=== PATIENT | female | born 1955 | race African-American/Black ===

== ENCOUNTER 2024-10-02 14:52 | Emergency (ER) | payer MEDICAID ==
[~2024-10-02] VITALS: Ht 167.6 cm; Wt 91.0 kg
--- NOTE | 2024-10-02 15:50 | ED.PDOC ---
History of Present Illness HPI Comments 68-year-old female with PMHx HLD, DM, HTN presents with a chief complaint of medication refill request. Patient states that she is not in any pain at this time. Patient mentions that she needs a medication refill request on 4 prescriptions that she used to have filled at [facility], but states that she no longer has [facility] insurance. Chief Complaint: High Blood Pressure Time Seen by MD: 15:40 Primary Care Provider: NONE Reviewed Notes: Nurses Notes, Medications, Allergies Allergies: Coded Allergies: NO KNOWN ALLERGIES (Unverified , 10/02/24) Home Meds Active Scripts Bisoprolol Fumarate (Bisoprolol Fumarate) 5 Mg Tab, 1 TAB PO DAILY, #90 TAB 1 Refill Prov:WENDY MCCALL MD 10/02/24 Losartan Potassium (Cozaar) 25 Mg Tab, 1 TAB PO DAILY, #90 TAB 1 Refill Prov:WENDY MCCALL MD 10/02/24 Duloxetine Hcl (Cymbalta) 60 Mg Cap, 1 CAP PO DAILY, #90 CAP 3 Refills Prov:WENDY MCCALL MD 10/02/24 Atorvastatin Calcium (ATORVASTATIN CALCIUM) 10 Mg Tab, 1 TAB PO DAILY, #90 TAB 1 Refill Prov:WENDY MCCALL MD 10/02/24 Information Source: Patient Mode of Arrival: Wheelchair Severity: Moderate Timing: Days Duration: Since onset Prehospital treatment: None Past Medical History PAST MEDICAL HISTORY: DM, High Lipids, HTN Surgical History: Hysterectomy POST CLOSING SPECIALIST History: Denies all POST CLOSING SPECIALIST Hx Family History Family History: Reviewed,noncontributory to illness Social History Smoker: Non-Smoker Alcohol: Denies ETOH Use Drugs: Denies Drug Use Lives In: Home Constitutional: denies: chills, diaphoresis, fatigue, fever, malaise, sweats, weakness, others EENTM: denies: blurred vision, double vision, ear bleeding, ear discharge, ear drainage, ear pain, ear ringing, eye pain, eye redness, hearing loss, mouth pain, mouth swelling, nasal discharge, nose bleeding, nose congestion, nose pain, photophobia, tearing, throat pain, throat swelling, voice changes, others Respiratory: denies: cough, hemoptysis, orthopnea, SOB at rest, shortness of breath, SOB with excertion, stridor, wheezing, others Cardiovascular: denies: chest pain, dizzy spells, diaphoresis, Dyspnea on exertion, edema, irregular heart beat, left arm pain, lightheadedness, palpitations, PND, syncope, others Gastrointestinal: denies: abdomen distended, abdominal pain, blood streaked bowels, constipated, diarrhea, dysphagia, difficulty swallowing, hematemesis, melena, nausea, poor appetite, poor fluid intake, rectal bleeding, rectal pain, vomiting, others Genitourinary: denies: abnormal vagina bleeding, burning, dyspareunia, dysuria, flank pain, frequency, hematuria, incontinence, pain, , vagina discharge, urgency, others Neurological: denies: dizziness, fainting, headache, left sided numbness, left sided weakness, numbness, paresthesia, pre-existing deficit, right sided numbness, right sided weakness, seizure, speech problems, tingling, tremors, weakness, others Musculoskeletal: denies: back pain, gout, joint pain, joint swelling, muscle pa in, muscle stiffness, neck pain, others Integumetry: denies: bruises, change in color, change in hair/nails, dryness, laceration, lesions, lumps, rash, wounds, others Allergic/Immunocompromised: denies: Difficulty Healing, Frequent Infections, Hives, Itching, others Hematologic/Lymphatic: denies: anemia, blood clots, easy bleeding, easy bruising, swollen glands, others Endocrine: denies: excessive hunger, excessive sweating, excessive thirst, excessive urination, flushing, intolerance to cold, intolerance to heat, unexplained weight gain, unexplained weight loss, others Psychiatric: denies: anxiety, bipolar disorder, depression, hopeless, panic disorder, schizophrenia, sleepless, suicidal, others All Other Systems: Reviewed and Negative Physical Exam General Appearance: No Apparent Distress HEENT: Normal ENT Inspection, Pharynx Normal, TMs Normal Neck: Full Range of Motion, Non-Tender, Normal, Normal Inspection Respiratory: Chest Non-Tender, Lungs Clear, No Accessory Muscle Use, No Respiratory Distress, Normal Breath Sounds Cardiovascular: No Edema, No JVD, No Murmur, No Gallop, Normal Peripheral Pulses, Regular Rate/Rhythm Breast Exam: Deferred Gastrointestinal: No Organomegaly, Non Tender, No Pulsatile Mass, Normal Bowel Sounds, Soft Genitalia: Deferred Pelvic: Deferred Rectal: Deferred Extremities: No calf tenderness, Normal capillary refill, Normal inspection, Normal range of motion, Non-tender, No pedal edema Musculoskeletal : Apperance: Normal Neurologic: Alert, double bottom driver II-XII nml as Tested, No Motor Deficits, Normal Affect, Normal Mood, No Sensory Deficits Cerebellar Function: Normal Reflexes: Normal Skin: Dry, Normal Color, Warm Lymphatic: No Adenopathy Was a procedure done? Was a procedure done?: No Differential Dx Considerations may include: Hypertensive urgency, medication refill X-Ray, Labs, Meds, VS Vital Signs Date Time Temp Pulse Resp B/P (MAP) Pulse Ox O2 Delivery O2 Flow Rate FiO2 10/02/24 15:28 98.7 60 16 131/76 (94) 94 98.7 The patient had a medication refill The history of being discharge him on agrees we will follow up with the primary care doctor new mother patient will return to the emergency department with the condition worsens. Time of 1ST Reevaluation: 16:00 Reevaluation 1ST: Improved Patient Education/Counseling: Diagnosis, Treatment, Prognosis, Need For Follow Up Family Education/Counseling: No Family Present Departure 1 Departure Time of Disposition: 16:16 Impression: Primary Impression: Hypertensive urgency Additional Impression: Medication refill Disposition: 01 HOME / SELF CARE / HOMELESS Condition: Fair e-Prescriptions Bisoprolol Fumarate (Bisoprolol Fumarate) 5 Mg Tab 1 TAB PO DAILY, #90 TAB 1 Refill Prov: WENDY MCCALL MD 10/02/24 Losartan Potassium (Cozaar) 25 Mg Tab 1 TAB PO DAILY, #90 TAB 1 Refill Prov: WENDY MCCALL MD 10/02/24 Duloxetine Hcl (Cymbalta) 60 Mg Cap 1 CAP PO DAILY, #90 CAP 3 Refills Prov: WENDY MCCALL MD 10/02/24 Atorvastatin Calcium (ATORVASTATIN CALCIUM) 10 Mg Tab 1 TAB PO DAILY, #90 TAB 1 Refill Prov: WENDY MCCALL MD 10/02/24 Discharged With: Self Critical Care Note Critical Care Time?: No Stability Stability form required: No Heart Score Heart Score: Heart Score Response (Comments) Value History N/A 0 EKG N/A 0 Age N/A 0 Risk Factors N/A 0 Troponin N/A 0 Total 0 I personally scribed for WENDY MCCALL MD ([email or web address]) on 10/02/24 at 15:50. Electronically submitted by Ovidio Lang ([email or web address]). WENDY MCCALL MD Oct 02, 2024 15:50
[2024-10-02] MEDS ORDERED: LOSA25TA5 PO (15:53)
[2024-10-02] MEDS ORDERED: BISO5TAB44 PO (15:53)
[2024-10-02] MEDS ORDERED: ATOR10TA52 PO (15:53)
[2024-10-02] MEDS ORDERED: DULO60CA41 PO (15:53)
[2024-10-02 16:40] VITALS: BP 147/78; PULSE 68; RESP 16; TEMP 97.7; O2SAT 97
== END 2024-10-02 16:43 | disposition home or self-care (01) ==
LOC: ER 14:52
DX: I16.0 Hypertensive urgency (principal); I10 Essential (primary) hypertension; E11.9 Type 2 diabetes mellitus without complications; E78.5 Hyperlipidemia, unspecified; Z76.0 Encounter for issue of repeat prescription; Z79.899 Other long term (current) drug therapy; Z90.710 Acquired absence of both cervix and uterus

== ENCOUNTER 2024-10-23 12:54 | Outpatient (CLI) | payer MEDICAID ==
[~2024-10-23 12:54] MED LIST: ATOR10TA52 PO; BISO5TAB44 PO; DULO60CA41 PO; LOSA25TA5 PO
[2024-10-23 13:20] LABS: Basophils # (auto) 0 10 ^3/uL (0-0.2); Basophils % (auto) 0.9 % (0.0-2.0); Eosinophils # (auto) 0.1 10 ^3/uL (0-0.8); Eosinophils % (auto) 3.4 % (0.0-7.0); Hematocrit 42.4 % (36.0-46.0); Hemoglobin 14.2 g/dL (12.2-16.2); Lymphocytes # (auto) 1.6 10 ^3/uL (0.4-5.4); Lymphocytes % (auto) 42.3 % (10.0-50.0); Mean Corpuscular Hemoglobin 29.3 pg (28.0-32.0); Mean Corpuscular Hgb Conc. 33.5 g/dL (32.0-36.0); Mean Corpuscular Volume 87.4 fL (80.0-100.0); Monocytes # (auto) 0.3 10 ^3/uL (0-1.3); Monocytes % (auto) 7.9 % (0.0-12.0); Neutrophils # (auto) 1.7 10 ^3/uL (1.6-8.6); Neutrophils % (auto) 45.5 % (37.0-80.0); Nucleated Red Blood Cells % 0.3 %; Platelet Count (auto) 199 10^3/uL (140-450); Red Blood Cells 4.85 10^6/uL (4.0-5.20); Red Cell Distribution Width 14.9 % (11.8-14.3); White Blood Cell 3.7 10^3/uL (4.4-10.8)
[2024-10-23 13:43] LABS: Urine Bacteria FEW /hpf (None Seen); Urine Blood Negative /uL (Negative); Urine Clarity Turbid (Clear); Urine Color Yellow (Yellow); Urine Protein, UAD TRACE (Negative); Urine Specific Gravity 1.017 (1.001-1.035); Urine Squamous Epithelial Cell FEW /hpf (<5); Urine Urobilinogen 4 mg/dL (Negative); Urine WBC 4 /HPF (0-5); Urine pH 5.5 (5.0-9.0)
[2024-10-23 14:12] LABS: Alanine Aminotransferase 16 U/L (7-40); Albumin 4.2 g/dL (3.2-4.8); Alkaline Phosphatase 109 U/L (46-116); Anion Gap 10 (5-15); Aspartate Aminotransferase 27 U/L (<34); BUN/Creatinine Ratio 20.1 (10.0-20.0); Bilirubin, Total 0.7 mg/dL (0.2-1.0); Calcium 9.2 mg/dL (8.7-10.4); Carbon Dioxide 29 mmol/L (20-31); Chloride 101 mmol/L (98-107); Glucose 140 mg/dL (74-106); Potassium 4.6 mmol/L (3.5-5.1); Sodium 140 mmol/L (136-145)
[2024-10-23 14:13] LABS: Blood Urea Nitrogen 33 mg/dL (9-23); Total Protein 8.3 g/dL (5.7-8.2)
[2024-10-23 15:17] LABS: RAPID PLASMA REAGIN REACTIVE (NONREACTIVE)
[2024-10-23 15:20] LABS: Creatinine, Urine 118.06 mg/dL (30.0-125.0)
[2024-10-23 15:21] LABS: Triglycerides 87 mg/dL (< 150)
[2024-10-23 15:22] LABS: LDL Cholesterol 32 mg/dL (< 100)
[2024-10-23 15:23] LABS: Cholesterol 79 mg/dL (< 200)
[2024-10-23 15:26] LABS: HDL Cholesterol 31 mg/dL (40-59)
[2024-10-23 15:57] LABS: Hepatitis A Total Antibody Positive (Negative); Hepatitis B Surface Antibody Negative (Negative); Hepatitis B Surface Antigen Negative (Negative); Hepatitis C Antibody Negative (Negative)
[2024-10-23 16:01] LABS: Hepatitis B Core Total AB Positive (Negative)
[2024-10-25 02:06] LABS: Chlamydia Trachomatis, NAA Negative (Negative); Neisseria gonorrhoeae, NAA Negative (Negative)
== END 2024-10-23 17:00 | disposition home or self-care (01) ==
LOC: LAB 12:54
PROVIDERS: ATTEND Nurse Practitioner Family
DX: I10 Essential (primary) hypertension (principal); B17.9 Acute viral hepatitis, unspecified; E10.65 Type 1 diabetes mellitus with hyperglycemia; E55.9 Vitamin D deficiency, unspecified; E78.5 Hyperlipidemia, unspecified; Z12.11 Encounter for screening for malignant neoplasm of colon; Z11.3 Encounter for screening for infections with a predominantly sexual mode of transmission
CPT/HCPCS: 36415; 80053; 80061; 81001; 82043; 82306; 82570; 82607; 83036; 84443; 85025; 86592; 86593; 86703; 86704; 86706; 86708; 86780; 86803; 87340

== ENCOUNTER → 2024-10-30 | Outpatient (CLI) | payer MEDICAID | END | disposition home or self-care (01) | LOC: LAB 11:10 | PROVIDERS: ATTEND Nurse Practitioner Family | DX: I10 Essential (primary) hypertension (principal); E10.65 Type 1 diabetes mellitus with hyperglycemia; E78.5 Hyperlipidemia, unspecified; E55.9 Vitamin D deficiency, unspecified; Z12.11 Encounter for screening for malignant neoplasm of colon; Z11.3 Encounter for screening for infections with a predominantly sexual mode of transmission | CPT/HCPCS: 82274 ==

== ENCOUNTER 2024-11-20 15:23 | Outpatient (CLI) | payer MEDICAID ==
[2024-11-21 13:38] LABS: RAPID PLASMA REAGIN QUANT 1:2 Titer (NONREACTIVE)
== END 2024-11-20 17:00 | disposition home or self-care (01) ==
LOC: LAB 15:23
PROVIDERS: ATTEND Nurse Practitioner Family
DX: A53.0 Latent syphilis, unspecified as early or late (principal)
CPT/HCPCS: 36415; 86592; 86593; 86780

== ENCOUNTER 2025-01-30 10:22 | Outpatient (CLI) | payer MEDICAID ==
[2025-01-30 10:56] LABS: Hematocrit 41.2 % (36.0-46.0); Hemoglobin 13.7 g/dL (12.2-16.2); Mean Corpuscular Hemoglobin 29.1 pg (28.0-32.0); Mean Corpuscular Volume 87.5 fL (80.0-100.0); Nucleated Red Blood Cells % 0.1 %
[2025-01-30 11:21] LABS: Triglycerides 100 mg/dL (< 150)
[2025-01-30 11:22] LABS: Alanine Aminotransferase 16 U/L (7-40); Albumin 4.1 g/dL (3.2-4.8); Anion Gap 8 (5-15); BUN/Creatinine Ratio 19.0 (10.0-20.0); Calcium 9.2 mg/dL (8.7-10.4); Chloride 103 mmol/L (98-107); Glucose 98 mg/dL (74-106); Potassium 4.3 mmol/L (3.5-5.1); Sodium 143 mmol/L (136-145); Total Protein 8.2 g/dL (5.7-8.2)
[2025-01-30 11:23] LABS: Bilirubin, Total 0.6 mg/dL (0.2-1.0); Cholesterol 81 mg/dL (< 200)
[2025-01-30 11:34] LABS: Alkaline Phosphatase 174 U/L (46-116); Blood Urea Nitrogen 26 mg/dL (9-23); Carbon Dioxide 32 mmol/L (20-31); HDL Cholesterol 32 mg/dL (40-59)
[2025-01-30 16:22] LABS: Urine Protein, UAD 1+ (Negative)
== END 2025-01-30 17:00 | disposition home or self-care (01) ==
LOC: LAB 10:22
PROVIDERS: ATTEND Nurse Practitioner Family
DX: E10.22 Type 1 diabetes mellitus with diabetic chronic kidney disease (principal); N18.32 Chronic kidney disease, stage 3b; E55.9 Vitamin D deficiency, unspecified; E10.41 Type 1 diabetes mellitus with diabetic mononeuropathy
CPT/HCPCS: 36415; 80053; 80061; 81003; 82306; 83036; 84443; 85025

== ENCOUNTER 2025-03-08 15:19 | Inpatient (IN) | payer MEDICAID ==
[~2025-03-08] VITALS: Ht 167.6 cm; Wt 103.2 kg
--- NOTE | 2025-03-08 15:59 | ECG ---
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
--- NOTE | 2025-03-08 16:06 | ED.PDOC ---
SOB-HPI HPI Comments 69 y/o F, with PMHx of HTN, DM, and HLD presents to the ED for CC of shortness of breath. Patient states, she has been experiencing shortness of breath only on execration xmonths. Patient reports, she is unable to walk a couple feet without assistance d/t feeling short of breath. Patient denies chest pain, palpitations, weakness, faintness, or extremity swelling. Chief Complaint: Shortness of Breath Time Seen by MD: 15:50 Primary Care Provider: NONE Reviewed notes: Nurses Notes, Medications, Allergies Information Source: Patient Mode of Arrival: Wheelchair Severity: Moderate Timing: Months Duration: Since onset Context: With Light Exertion PE Risk Factors: None History of: None Past Medical History PAST MEDICAL HISTORY: DM, High Lipids, HTN Surgical History: Hysterectomy MOLDER SHOULDER PAD History: Denies all MOLDER SHOULDER PAD Hx Family History Family History: Reviewed,noncontributory to illness Social History Smoker: Non-Smoker Alcohol: Denies ETOH Use Drugs: Denies Drug Use Lives In: Home Constitutional: denies: chills, diaphoresis, fatigue, fever, malaise, sweats, weakness, others EENTM: denies: blurred vision, double vision, ear bleeding, ear discharge, ear drainage, ear pain, ear ringing, eye pain, eye redness, hearing loss, mouth pain, mouth swelling, nasal discharge, nose bleeding, nose congestion, nose pain, photophobia, tearing, throat pain, throat swelling, voice changes, others Respiratory: reports: shortness of breath; denies: cough, hemoptysis, orthopnea, SOB at rest, SOB with excertion, stridor, wheezing, others Cardiovascular: denies: chest pain, dizzy spells, diaphoresis, Dyspnea on exertion, edema, irregular heart beat, left arm pain, lightheadedness, palpitations, PND, syncope, others Gastrointestinal: denies: abdomen distended, abdominal pain, blood streaked bowels, constipated, diarrhea, dysphagia, difficulty swallowing, hematemesis, melena, nausea, poor appetite, poor fluid intake, rectal bleeding, rectal pain, vomiting, others Genitourinary: denies: abnormal vagina bleeding, burning, dyspareunia, dysuria, flank pain, frequency, hematuria, incontinence, pain, , vagina discharge, urgency, others Neurological: denies: dizziness, fainting, headache, left sided numbness, left sided weakness, numbness, paresthesia, pre-existing deficit, right sided numbness, right sided weakness, seizure, speech problems, tingling, tremors, wea kness, others Musculoskeletal: denies: back pain, gout, joint pain, joint swelling, muscle pain, muscle stiffness, neck pain, others Integumetry: denies: bruises, change in color, change in hair/nails, dryness, l aceration, lesions, lumps, rash, wounds, others Allergic/Immunocompromised: denies: Difficulty Healing, Frequent Infections, Hives, Itching, others Hematologic/Lymphatic: denies: anemia, blood clots, easy bleeding, easy bruising, swollen glands, others Endocrine: denies: excessive hunger, excessive sweating, excessive thirst, excessive urination, flushing, intolerance to cold, intolerance to heat, unexplained weight gain, unexplained weight loss, others Psychiatric: denies: anxiety, bipolar disorder, depression, hopeless, panic disorder, schizophrenia, sleepless, suicidal, others All Other Systems: Reviewed and Negative Physical Exam General Appearance: Moderate Distress HEENT: Normal ENT Inspection, Pharynx Normal, TMs Normal Neck: Full Range of Motion, Non-Tender, Normal, Normal Inspection Respiratory: Chest Non-Tender, No Accessory Muscle Use, Rales, Respiratory Distress Cardiovascular: No Edema, No JVD, No Murmur, No Gallop, Normal Peripheral Pulses, Regular Rate/Rhythm Breast Exam: Deferred Gastrointestinal: No Organomegaly, Non Tender, No Pulsatile Mass, Normal Bowel Sounds, Soft Genitalia: Deferred Pelvic: Deferred Rectal: Deferred Extremities: No calf tenderness, Normal capillary refill, Non-tender, Pedal edema Musculoskeletal : Apperance: Normal Neurologic: Alert, rose grading supervisor II-XII nml as Tested, No Motor Deficits, Normal Affect, Normal Mood, No Sensory Deficits Cerebellar Function: Normal Reflexes: Normal Skin: Dry, Normal Color, Warm Lymphatic: No Adenopathy Was a procedure done? Was a procedure done?: No Differential Dx Differential Diagnosis: Bronchitis, Pneumonia, Pulmonary Embolism, Pharyngitis, URI X-Ray, Labs, Meds, VS Vital Signs Date Time Temp Pulse Resp B/P (MAP) Pulse Ox O2 Delivery O2 Flow Rate FiO2 03/08/25 15:37 58 03/08/25 15:26 97.5 56 18 184/79 93 97.5 Lab Test 03/08/25 17:15 03/08/25 16:18 Range/Units Troponin I High Sensitivity 16 16 </=34 ng/L White Blood Count 5.1 4.4-10.8 10^3/uL Red Blood Count 4.62 4.0-5.20 10^6/uL Hemoglobin 13.3 12.2-16.2 g/dL Hematocrit 40.6 36.0-46.0 % Mean Corpuscular Volume 87.9 80.0-100.0 fL Mean Corpuscular Hemoglobin 28.9 28.0-32.0 pg Mean Corpuscular Hemoglobin Concent 32.9 32.0-36.0 g/dL Red Cell Distribution Width 15.0 H 11.8-14.3 % Platelet Count 269 140-450 10^3/uL Mean Platelet Volume 8.3 6.9-10.8 fL Neutrophils (%) (Auto) 48.4 37.0-80.0 % Lymphocytes (%) (Auto) 39.0 10.0-50.0 % Monocytes (%) (Auto) 9.9 0.0-12.0 % Eosinophils (%) (Auto) 1.8 0.0-7.0 % Basophils (%) (Auto) 0.9 0.0-2.0 % Neutrophils # (Auto) 2.5 1.6-8.6 10 ^3/uL Lymphocytes # (Auto) 2.0 0.4-5.4 10 ^3/uL Monocytes # (Auto) 0.5 0-1.3 10 ^3/uL Eosinophils # (Auto) 0.1 0-0.8 10 ^3/uL Basophils # (Auto) 0 0-0.2 10 ^3/uL Nucleated Red Blood Cells 0.2 % D-Dimer, Quantitative 0.88 H 0.0-0.49 mg/L FEU Sodium Level 141 136-145 mmol/L Potassium Level 4.1 3.5-5.1 mmol/L Chloride Level 105 98-107 mmol/L Carbon Dioxide Level 30 20-31 mmol/L Anion Gap 6 5-15 Blood Urea Nitrogen 18 9-23 mg/dL Creatinine 1.24 H 0.550-1.02 mg/dL Glomerular Filtration Rate Calc 48 >90 mL/min BUN/Creatinine Ratio 14.5 10.0-20.0 Serum Glucose 71 L 74-106 mg/dL Calcium Level 9.0 8.7-10.4 mg/dL B-Type Natriuretic Peptide 343.84 0-100 pg/mL CXR: IMPRESSION: Cardiomegaly with pulmonary vascular congestion and bilateral patchy airspace opacities. The patient was given Lasix 40 mg IV push The CBC and chemistry panel is within normal limits The BNP is elevated 343 The D-dimer is elevated at 0.88 The patient is being admitted at this time. The patient understands and agrees with the management. Images Reviewed?: Images reviewed and evaluated by me Time of 1ST Reevaluation: 16:20 Reevaluation 1ST: Unchanged Patient Education/Counseling: Diagnosis, Treatment, Prognosis Family Education/Counseling: No Family Present SEPSIS Sepsis Screen Date sepsis recognized/suspect: Mar 08, 2025 Time Sepsis recognized/suspect: 1525 Recent Procedure: No On Antibiotic Therapy: No Respiratory Rate >20: No Heart Rate >90: No Temp<36 C (96.8 F) or >38.3 C: No SBP <90 or MAP <65 mmHG: No New Acute Mental Status Change: No Is the patient on CPAP, BIPAP,: No Physician Orders Urinalysis (03/08/25 15:53) Chest Two Views Routine (03/08/25 15:53) Heplock Iv (03/08/25 15:53) Whey Department Operator (03/08/25 15:53) Blood Pressure (03/08/25 15:53) Pulse Oximetry (03/08/25 15:53) Troponin-I Hs (03/08/25 18:53) Electrocardigram (03/08/25 16:58) Electrocardigram (03/08/25 18:58) Vital Signs Date Time Temp Pulse Resp B/P (MAP) Pulse Ox O2 Delivery O2 Flow Rate FiO2 03/08/25 15:37 58 03/08/25 15:26 97.5 56 18 184/79 93 97.5 Laboratory Tests Test 03/08/25 16:18 White Blood Count 5.1 10^3/uL (4.4-10.8) Departure 1 Departure Time of Disposition: 19:04 Impression: Primary Impression: Acute on chronic diastolic heart failure Disposition: ADMITTED INPATIENT Admit to: [facility] Condition: Fair Critical Care Note Critical Care Time?: Yes (45 min-critical care time only) Stability Stability form required: Yes Unstable for transfer: Telemetry monitoring (Telemetry monitoring required), ED Physician Assesment (Clinical assesment) Heart Score Heart Score: Heart Score Response (Comments) Value History Moderate Suspicious 1 EKG Repolarization Disturb 1 Age >65 2 Risk Factors 1 or 2 risk factors 1 Troponin Normal limit 0 Total 5 I personally scribed for WENDY MCCALL MD ([email or web address]) on 03/08/25 at 16:05. Electronically submitted by Niki Blum ([employer]). I personally scribed for WENDY MCCALL MD ([email or web address]) on 03/08/25 at 16:49. Electronically submitted by Niki Blum ([employer]). I personally scribed for WENDY MCCALL MD ([email or web address]) on 03/08/25 at 17:22. Electronically submitted by Niki Blum ([email or web address]). WENDY MCCALL MD Mar 08, 2025 16:05
--- NOTE | 2025-03-08 16:32 | DVH ---
CHEST RADIOGRAPH Indication: sob Technique: XY CHEST TWO VIEWS ROUTINE COMPARISON: None FINDINGS: The cardiac silhouette is enlarged. The lungs demonstrate bilateral patchy airspace opacities. The pulmonary vasculature is prominent. There is no pleural effusion. There is no pneumothorax. Moderate thoracic degenerative disc disease. IMPRESSION: Cardiomegaly with pulmonary vascular congestion and bilateral patchy airspace opacities.
[2025-03-08 16:33] LABS: Hematocrit 40.6 % (36.0-46.0); Hemoglobin 13.3 g/dL (12.2-16.2); Mean Corpuscular Hemoglobin 28.9 pg (28.0-32.0); Mean Corpuscular Volume 87.9 fL (80.0-100.0); Nucleated Red Blood Cells % 0.2 %
[2025-03-08 16:37] LABS: Chloride 105 mmol/L (98-107); Potassium 4.1 mmol/L (3.5-5.1); Sodium 141 mmol/L (136-145)
[2025-03-08 16:38] LABS: Anion Gap 6 (5-15); Carbon Dioxide 30 mmol/L (20-31)
[2025-03-08 16:39] LABS: Calcium 9.0 mg/dL (8.7-10.4)
[2025-03-08 16:44] LABS: BUN/Creatinine Ratio 14.5 (10.0-20.0); Blood Urea Nitrogen 18 mg/dL (9-23); Glucose 71 mg/dL (74-106)
[2025-03-08] MEDS ORDERED: DEXTROSE (50%) 50ML SYRG IV PRN (19:15)
[2025-03-08] MEDS ORDERED: ALBUTEROL SULF 2.5 MG/0.5ML(0.5%) NEB SOLN NEB PRN (19:15)
[2025-03-08] MEDS ORDERED: FUROSEMIDE 20 MG/2 ML VIAL IV ONE (19:15)
[2025-03-08] MEDS ORDERED: ONDANSETRON HCL 4 MG/2 ML VIAL IV PRN (19:15)
[2025-03-08] MEDS ORDERED: ACETAMINOPHEN 325 MG TAB PO PRN (19:15)
[2025-03-08] MEDS ORDERED: hydrALAZINE HCL 20 MG/ML VL IV PRN (19:15)
[2025-03-08] MEDS ORDERED: AZITHROMYCIN 500MG/ 250ML 250 ML IV ONE (19:30)
--- NOTE | 2025-03-08 19:31 | DVHHP2 ---
History of Present Illness Reason for Visit: Shortness for breath History of Present Illness 69-year-old female presents for evaluation of shortness for breath. Patient endorses shortness for breath has been ongoing for the past month. She states over the past one-week symptoms have become worse. She becomes severely short o f breath with exertion and he stopped to catch her breath. She also reports associated dizziness. No chest pain. No nausea or vomiting. Past Medical History Hypertension, dyslipidemia, diabetes mellitus,? CHF Past Surgical History Hysterectomy Family History Noncontributory Smoke: No ALCOHOL: none Drugs: None Lives: with Family Review of Systems Review of Systems Review of systems are currently negative otherwise addressed in HPI. Allergies: Coded Allergies: NO KNOWN ALLERGIES (Unverified , 10/02/24) Exam Vital Signs Vital Signs Date Time Temp Pulse Resp B/P (MAP) Pulse Ox O2 Delivery O2 Flow Rate FiO2 03/08/25 15:37 58 03/08/25 15:26 97.5 18 184/79 93 97.5 Exam Gen: 69-year-old female in mild distress Skin: Warm, dry, normal color and texture, no rash. HEENT: Normocephalic atraumatic, mucous membranes moist and pink. Neck: Cervical and supraclavicular nodes normal without enlargement, trachea is midline, thyroid gland is normal without masses. Pulmonary: Clear to auscultation and percussion bilaterally. Cardiac: Regular rate and rhythm. No murmur Abdomen: Soft, nontender, nondistended, bowel sounds present all 4 quadrants, no guarding, no rigidity, no organomegaly. Extremities: No cyanosis, clubbing, no edema Neuro: Cranial nerves II through XII grossly intact, normal affect and speech, no focal motor deficits. Labs/Xrays ORDERING PHYSICIAN: WENDY MCCALL MD PROCEDURE(s): CXR2 - CHEST TWO VIEWS ROUTINE REASON: sob ORDER NUMBER(s): [id number], ACCESSION NUMBER(s): [id number] CHEST RADIOGRAPH Indication: sob Technique: XY CHEST TWO VIEWS ROUTINE COMPARISON: None FINDINGS: The cardiac silhouette is enlarged. The lungs demonstrate bilateral patchy airspace opacities. The pulmonary vasculature is prominent. There is no pleural effusion. There is no pneumothorax. Moderate thoracic degenerative disc disease. IMPRESSION: Cardiomegaly with pulmonary vascular congestion and bilateral patchy airspace opacities. Labs Test 03/08/25 17:15 03/08/25 16:18 Range/Units Troponin I High Sensitivity 16 </=34 ng/L White Blood Count 5.1 4.4-10.8 10^3/uL Red Blood Count 4.62 4.0-5.20 10^6/uL Hemoglobin 13.3 12.2-16.2 g/dL Hematocrit 40.6 36.0-46.0 % Mean Corpuscular Volume 87.9 80.0-100.0 fL Mean Corpuscular Hemoglobin 28.9 28.0-32.0 pg Mean Corpuscular Hemoglobin Concent 32.9 32.0-36.0 g/dL Red Cell Distribution Width 15.0 H 11.8-14.3 % Platelet Count 269 140-450 10^3/uL Mean Platelet Volume 8.3 6.9-10.8 fL Neutrophils (%) (Auto) 48.4 37.0-80.0 % Lymphocytes (%) (Auto) 39.0 10.0-50.0 % Monocytes (%) (Auto) 9.9 0.0-12.0 % Eosinophils (%) (Auto) 1.8 0.0-7.0 % Basophils (%) (Auto) 0.9 0.0-2.0 % Neutrophils # (Auto) 2.5 1.6-8.6 10 ^3/uL Lymphocytes # (Auto) 2.0 0.4-5.4 10 ^3/uL Monocytes # (Auto) 0.5 0-1.3 10 ^3/uL Eosinophils # (Auto) 0.1 0-0.8 10 ^3/uL Basophils # (Auto) 0 0-0.2 10 ^3/uL Nucleated Red Blood Cells 0.2 % D-Dimer, Quantitative 0.88 H 0.0-0.49 mg/L FEU Sodium Level 141 136-145 mmol/L Potassium Level 4.1 3.5-5.1 mmol/L Chloride Level 105 98-107 mmol/L Carbon Dioxide Level 30 20-31 mmol/L Anion Gap 6 5-15 Blood Urea Nitrogen 18 9-23 mg/dL Creatinine 1.24 H 0.550-1.02 mg/dL Glomerular Filtration Rate Calc 48 >90 mL/min BUN/Creatinine Ratio 14.5 10.0-20.0 Serum Glucose 71 L 74-106 mg/dL Calcium Level 9.0 8.7-10.4 mg/dL B-Type Natriuretic Peptide 343.84 0-100 pg/mL SEPSIS Sepsis Screen Date sepsis recognized/suspect: Mar 08, 2025 Time Sepsis recognized/suspect: 1525 Recent Procedure: No On Antibiotic Therapy: No Respiratory Rate >20: No Heart Rate >90: No Temp<36 C (96.8 F) or >38.3 C: No SBP <90 or MAP <65 mmHG: No New Acute Mental Status Change: No Is the patient on CPAP, BIPAP,: No Physician Orders Urinalysis (03/08/25 15:53) Chest Two Views Routine (03/08/25 15:53) Heplock Iv (03/08/25 15:53) Race Board Attendant (03/08/25 15:53) Blood Pressure (03/08/25 15:53) Pulse Oximetry (03/08/25 15:53) Troponin-I Hs (03/08/25 18:53) Electrocardigram (03/08/25 16:58) Electrocardigram (03/08/25 18:58) Furosemide Injection (Lasix Injection) (03/08/25 19:15) Furosemide Injection (Lasix Injection) (03/09/25 10:00) Atorvastatin (Lipitor) (03/08/25 22:00) Losartan Tablet (Cozaar Tablet) (03/09/25 10:00) Gabapentin Capsule (Neurontin Capsule) (03/08/25 22:00) Hydralazine Injection (Apresoline Inject (03/08/25 19:15) Basic Metabolic Panel (03/08/25 19:13) Glucose Blood (Accu-Chek Comfort Curve T (03/08/25 22:00) Mild Sliding Scale (03/08/25 22:00) Dextrose 50% Syringe (03/08/25 19:15) Admit (03/08/25 19:13) Ondansetron Hcl (Zofran) (03/08/25 19:15) Cardiac Diet-2gna,Lofat,Lochol (03/09/25 Breakfast) Echo 2d Mode Cardiac Dop (03/08/25 19:13) Condition: Stable (03/08/25 19:13) Acetaminophen Tablet (Tylenol Tablet) (03/08/25 19:15) Bedrest With Bathroom Privileg (03/08/25 19:13) Albuterol Medneb (Ventolin Medneb) (03/08/25 19:15) Vital Signs Date Time Temp Pulse Resp B/P (MAP) Pulse Ox O2 Delivery O2 Flow Rate FiO2 03/08/25 15:37 58 03/08/25 15:26 97.5 56 18 184/79 93 97.5 Laboratory Tests Test 03/08/25 16:18 White Blood Count 5.1 10^3/uL (4.4-10.8) Assessment/Plan Assessment/Plan Assessment Acute respiratory distress Possible exacerbation of heart failure Questionable pneumonitis Accelerated hypertension Diabetes mellitus Acute kidney injury Plan Admit the patient to [facility] to the hospitalist Echocardiogram pending IV Lasix Azithromycin Resume home medications Continue treatment per orders. Plan discussed with: Patient My Orders Orders - NAHEED MANZANO Procedure Category Date Status Time Furosemide Injection PHA 03/08/25 Verified (Lasix Injection) 19:15 Furosemide Injection PHA 03/09/25 Verified (Lasix Injection) 10:00 Atorvastatin (Lipitor) PHA 03/08/25 Verified 22:00 Losartan Tablet PHA 03/09/25 Verified (Cozaar Tablet) 10:00 Gabapentin Capsule PHA 03/08/25 Verified (Neurontin Capsule) 22:00 Hydralazine Injection PHA 03/08/25 Verified (Apresoline Inject 19:15 Basic Metabolic Panel LAB 03/08/25 Verified 19:13 Glucose Blood PHA 03/08/25 Verified (Accu-Chek Comfort 22:00 Mild Sliding Scale PHA 03/08/25 Verified 22:00 Dextrose 50% Syringe PHA 03/08/25 Verified 19:15 Admit ADMIT 03/08/25 Verified 19:13 Ondansetron Hcl PHA 03/08/25 Verified (Zofran) 19:15 Cardiac DIET 03/09/25 Verified Diet-2gna,Lofat,Lochol Breakfast Echo 2d Mode Cardiac US 03/08/25 Verified DOP 19:13 Condition: Stable SUSAN 03/08/25 Verified 19:13 Acetaminophen Tablet PHA 03/08/25 Verified (Tylenol Tablet) 19:15 Bedrest With Bathroom SUSAN 03/08/25 Verified Privileg 19:13 Albuterol Medneb PHA 03/08/25 Verified (Ventolin Medneb) 19:15 Date of Service: Mar 08, 2025 Billing Provider: NAHEED MANZANO Common Visit Codes: [id number] INP/OBS CARE (HIGH) NAHEED MANZANO Mar 08, 2025 19:31
[2025-03-08 19:54] VITALS: O2SAT 94
[2025-03-08 19:55] VITALS: BP 184/79; PULSE 57; RESP 16; TEMP 97.5; O2SAT 94
[2025-03-08 20:01] LABS: Chloride 104 mmol/L (98-107); Potassium 4.1 mmol/L (3.5-5.1); Sodium 142 mmol/L (136-145)
[2025-03-08 20:02] LABS: Anion Gap 10 (5-15); Carbon Dioxide 28 mmol/L (20-31)
[2025-03-08 20:03] LABS: Calcium 9.0 mg/dL (8.7-10.4)
[2025-03-08 20:07] LABS: BUN/Creatinine Ratio 18.6 (10.0-20.0); Blood Urea Nitrogen 22 mg/dL (9-23)
[2025-03-08 20:18] LABS: Glucose 46 mg/dL (74-106)
[2025-03-08 20:57] VITALS: BP 185/81; TEMP 97.8
[2025-03-08 21:08] VITALS: PULSE 67; RESP 17; O2SAT 97
[2025-03-08 21:10] VITALS: O2SAT 97
[2025-03-08] MEDS ORDERED: GABAPENTIN 300 MG CAP PO SCH (22:00)
[2025-03-08] MEDS ORDERED: ACCU-CHEK COMFORT CURVE STRIP VI SCH (22:00)
[2025-03-08] MEDS ORDERED: ATORVASTATIN 20 MG TAB PO SCH (22:00)
[2025-03-08] MEDS ORDERED: InsuLIN REG 1unit/0.01ml Soln (100units/ml) SC SCH (22:00)
[2025-03-09] MEDS ORDERED: AZITHROMYCIN 500MG/ 250ML 250 ML IV SCH (10:00)
[2025-03-09] MEDS ORDERED: LOSARTAN POTASSIUM 50 MG TAB PO SCH (10:00)
[2025-03-09] MEDS ORDERED: FUROSEMIDE 20 MG/2 ML VIAL IV SCH (10:00)
--- NOTE | 2025-03-09 12:12 | DVHDS2 ---
Discharge Summary Date of Admission Mar 08, 2025 at 19:13 Date of Discharge: Mar 09, 2025 Admitting Diagnosis Acute respiratory distress Possible exacerbation of heart failure Questionable pneumonitis Accelerated hypertension Diabetes mellitus Acute kidney injury Labs/Diagnostic Data: Laboratory Results Test 03/08/25 21:01 03/08/25 19:34 03/08/25 16:18 POC Glucose 47 mg/dl (70-106) Sodium Level 142 mmol/L (136-145) Potassium Level 4.1 mmol/L (3.5-5.1) Chloride Level 104 mmol/L (98-107) Carbon Dioxide Level 28 mmol/L (20-31) Anion Gap 10 (5-15) Blood Urea Nitrogen 22 mg/dL (9-23) Creatinine 1.18 mg/dL (0.550-1.02) Glomerular Filtration Rate Calc 51 mL/min (>90) BUN/Creatinine Ratio 18.6 (10.0-20.0) Serum Glucose 46 mg/dL (74-106) Calcium Level 9.0 mg/dL (8.7-10.4) Troponin I High Sensitivity 14 ng/L (</=34) White Blood Count 5.1 10^3/uL (4.4-10.8) Red Blood Count 4.62 10^6/uL (4.0-5.20) Hemoglobin 13.3 g/dL (12.2-16.2) Hematocrit 40.6 % (36.0-46.0) Mean Corpuscular Volume 87.9 fL (80.0-100.0) Mean Corpuscular Hemoglobin 28.9 pg (28.0-32.0) Mean Corpuscular Hemoglobin Concent 32.9 g/dL (32.0-36.0) Red Cell Distribution Width 15.0 % (11.8-14.3) Platelet Count 269 10^3/uL (140-450) Mean Platelet Volume 8.3 fL (6.9-10.8) Neutrophils (%) (Auto) 48.4 % (37.0-80.0) Lymphocytes (%) (Auto) 39.0 % (10.0-50.0) Monocytes (%) (Auto) 9.9 % (0.0-12.0) Eosinophils (%) (Auto) 1.8 % (0.0-7.0) Basophils (%) (Auto) 0.9 % (0.0-2.0) Neutrophils # (Auto) 2.5 10 ^3/uL (1.6-8.6) Lymphocytes # (Auto) 2.0 10 ^3/uL (0.4-5.4) Monocytes # (Auto) 0.5 10 ^3/uL (0-1.3) Eosinophils # (Auto) 0.1 10 ^3/uL (0-0.8) Basophils # (Auto) 0 10 ^3/uL (0-0.2) Nucleated Red Blood Cells 0.2 % D-Dimer, Quantitative 0.88 mg/L FEU (0.0-0.49) B-Type Natriuretic Peptide 343.84 pg/mL (0-100) Other Laboratory Tests 03/08/25 19:34 03/08/25 16:18 Brief Hx & Hospital Course: Patient is 69 years old woman ED with shortness of breaths. Patient is being admitted for acute respiratory failure due to CHF exacerbation. Patient started on IV Lasix. Patient while in emergency patient decided to leave AMA. Condition at Discharge: Guarded Final Diagnosis/Problems List Acute respiratory distress Possible exacerbation of heart failure Questionable pneumonitis Accelerated hypertension Diabetes mellitus Acute kidney injury Discharge Disposition: AMA Discharge Instruct/Medications Diet: Cardiac 2g Na,low cholest Activity: No Restrictions, As Tolerated Follow Up/Referral: Follow up with PCP 1-2 days Scheduled Atorvastatin Calcium (Atorvastatin Calcium), 1 TAB PO DAILY Bisoprolol Fumarate (Bisoprolol Fumarate), 1 TAB PO DAILY Duloxetine Hcl (Cymbalta), 1 CAP PO DAILY Losartan Potassium (Cozaar), 1 TAB PO DAILY 35 Discharge Statement: "Patient was advised to return to the ER or call 911 if any headaches, dizziness, shortness of breath, chest pain, abdominal pain, bleeding, fevers, or worsening of medical condition. Patient was counseled about treatment plan, medications, possible side effects, patientverbalized understanding. All questions were answered to the best of my ability. This discharge took greater then 30 minutes in planning, reviewing documentation, counseling the patient, and discussing with other team members." ASSESSMENT ASSESSMENT Assessment Date of Service: Mar 09, 2025 Billing Provider: SMITH TYSON MD Common Visit Codes: 84196-XZO/OBS DISCH DAY <30MIN SMITH TYSON MD Mar 09, 2025 12:12
== END 2025-03-09 20:37 | disposition left against medical advice (07) | DRG 205 ==
LOC: ER 15:19 → OVERFLOW 19:13
PROVIDERS: ADMIT Internal Medicine; ATTEND Internal Medicine
DX: J98.4 Other disorders of lung (principal); I50.33 Acute on chronic diastolic (congestive) heart failure; J96.00 Acute respiratory failure, unspecified whether with hypoxia or hypercapnia; I11.0 Hypertensive heart disease with heart failure; N17.9 Acute kidney failure, unspecified; E11.9 Type 2 diabetes mellitus without complications; Z53.29 Procedure and treatment not carried out because of patient's decision for other reasons; Z90.710 Acquired absence of both cervix and uterus; Z79.899 Other long term (current) drug therapy
CPT/HCPCS: 36415; 71046; 80048; 82962; 83880; 84484; 85025; 85379; 93005; 99291; G0378

== ENCOUNTER 2025-03-12 09:30 | Inpatient (IN) | payer MEDICAID ==
[~2025-03-12] VITALS: Ht 167.6 cm; Wt 103.0 kg
--- NOTE | 2025-03-12 09:47 | ECG ---
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
--- NOTE | 2025-03-12 10:16 | ED.PDOC ---
History of Present Illness HPI Comments Ms. Bravo is a 69 year old female with prior medical history of type 2 diabetes mellitus, hypertension, diabetic peripheral neuropathy, hyperlipidemia, and unspecified congestive heart failure, who presents today with chief complaint of shortness of breath. The patient states the shortness of breath has been present for the last couple of months however has worsened since . She states she usually is able to ambulate around her home but since she has had greater difficulty ambulating short distances due to the shortness of breath. She saw her PCP on who sent her to the emergency department, where she was going to be admitted and started on IV Lasix due to s uspicion of CHF exacerbation, however the patient left AMA. She presents today due to persistence of symptoms. She denies chest pain, peripheral edema, orthopnea, bendopnea, nausea, vomiting, coughing, sore throat, and palpitations. On initial evaluation in the ED, on supplemental O2 via NC on 2 L (which she does not use at home) with shortness of breath on exertion, vitals are stable. Home medications: Lasix 40 mg, Lipitor 10 mg, Losartan 25 mg, Zebeta 5 mg, Cymbalta 60 mg, Neurotonin 300 mg Chief Complaint: Shortness of Breath Time Seen by MD: 09:36 Primary Care Provider: NONE Allergies: Coded Allergies: NO KNOWN ALLERGIES (Unverified , 10/02/24) Home Meds Active Scripts Bisoprolol Fumarate (Bisoprolol Fumarate) 5 Mg Tab, 1 TAB PO DAILY, #90 TAB 1 Refill Prov:WENDY MCCALL MD 10/02/24 Losartan Potassium (Cozaar) 25 Mg Tab, 1 TAB PO DAILY, #90 TAB 1 Refill Prov:WENDY MCCALL MD 10/02/24 Duloxetine Hcl (Cymbalta) 60 Mg Cap, 1 CAP PO DAILY, #90 CAP 3 Refills Prov:WENDY MCCALL MD 10/02/24 Atorvastatin Calcium (ATORVASTATIN CALCIUM) 10 Mg Tab, 1 TAB PO DAILY, #90 TAB 1 Refill Prov:WENDY MCCALL MD 10/02/24 Reported Medications Furosemide (Lasix) 20 Mg Tb, 40 MG PO DAILY, TAB 03/12/25 Insulin Glargine (Lantus Solostar) 100 Unit/Ml Inj 03/12/25 Gabapentin (Gabapentin) 300 Mg Cap, 1 CAP PO BID 03/12/25 Amiodarone HCl (Amiodarone HCl) 200 Mg Tab, 1 TAB PO DAILY 03/12/25 Discontinued Reported Medications Losartan Potassium (Losartan Potassium) 50 Mg Tab, 1 TAB PO DAILY 03/12/25 Information Source: Patient Mode of Arrival: Wheelchair Severity: Moderate Timing: Days Duration: Since onset Past Medical History PAST MEDICAL HISTORY: CHF, DM, High Lipids, HTN Past Medical History (Other): Neuropathy Surgical History: Appendectomy, Hysterectomy Surgical History (Other): Two toe amputations DECK ENGINEER History: Denies all DECK ENGINEER Hx Family History Family History: Reviewed,noncontributory to illness Social History Smoker: Non-Smoker, Quit Greater Than 1 Year (Smoked half a pack a day for 25 years, quit 20 years ago ) Alcohol: Denies ETOH Use Drugs: Denies Drug Use Lives In: Home Constitutional: denies: chills, diaphoresis, fatigue, fever, malaise, sweats, weakness EENTM: denies: blurred vision, double vision, eye redness, nasal discharge, nose congestion, throat pain Respiratory: reports: SOB with excertion; denies: cough, hemoptysis, orthopnea Cardiovascular: denies: chest pain, dizzy spells, diaphoresis, Dyspnea on exertion, edema, irregular heart beat, left arm pain, lightheadedness, palpitations Gastrointestinal: denies: abdomen distended, abdominal pain, blood streaked bowels, constipated, diarrhea, dysphagia, difficulty swallowing, hematemesis, melena, nausea, poor appetite, poor fluid intake, rectal bleeding, vomiting Genitourinary: denies: burning, dysuria, flank pain, frequency, hematuria, incontinence, pain, urgency Neurological: reports: numbness; denies: dizziness, fainting, headache, paresthesia, pre-existing deficit, seizure, tingling, tremors, weakness Musculoskeletal: denies: back pain, joint pain, joint swelling, muscle pain, muscle stiffness, neck pain Integumetry: denies: bruises, laceration, lesions, lumps, rash, wounds, others Physical Exam General Appearance: Moderate Distress, Obese HEENT: Normal ENT Inspection, PERRL/EOMI, Pharynx Normal Neck: Full Range of Motion, Non-Tender, Other (Presence of midline neck nodule, is mobile, soft, nontender) Respiratory: Other ( Bilateral chest expansion, no pain on palpation chest wall palpation, presence of rales in bilateral lower lung mccarthy ) Cardiovascular: No Edema, No Murmur, Normal Peripheral Pulses, Regular Rate/Rhythm Breast Exam: Deferred Gastrointestinal: Other ( Obese, Abdomen nondistended, normal bowel sounds, soft, no pain on palpation of any abdominal quadrant, no palpable masses) Genitalia: Deferred Pelvic: Deferred Rectal: Deferred Extremities: Normal capillary refill, Normal range of motion, Non-tender, No pedal edema Neurologic: Alert, Normal Affect, Normal Mood Cerebellar Function: Normal Reflexes: NOT DONE Skin: Normal Color Peripheral Pulses: 2+ dorsalis pedis (R), 2+ dorsalis pedis (L) Lymphatic: Other (No cervical adenopathy ) Was a procedure done? Was a procedure done?: No Differential Dx Considerations may include: Acute on chronic CHF exacerbation, COPD exacerbation, Pneumonia, Influenza, COVID, PE, Acute hypoxic respiratory failure, IN, ACS X-Ray, Labs, Meds, VS Vital Signs Date Time Temp Pulse Resp B/P (MAP) Pulse Ox O2 Delivery O2 Flow Rate FiO2 03/12/25 13:04 55 24 95 Nasal Cannula* 4 36 03/12/25 13:01 98.4 55 16 187/72 (110) 95 98.4 03/12/25 12:11 155/63 03/12/25 11:45 55 16 96 Nasal Cannula 4.0 03/12/25 11:45 98.7 55 16 155/63 (93) 96 98.7 03/12/25 09:32 97.7 63 20 115/63 92 97.7 Lab Test 03/12/25 11:48 03/12/25 11:37 03/12/25 11:17 03/12/25 11:00 Range/Units Troponin I High Sensitivity 12 15 </=34 ng/L Influenza Type A Antigen Negative Negative Influenza Type B Antigen Negative Negative SARS-CoV-2 Antigen (Rapid) Negative NEGATIVE White Blood Count 5.5 4.4-10.8 10^3/uL Red Blood Count 4.81 4.0-5.20 10^6/uL Hemoglobin 14.0 12.2-16.2 g/dL Hematocrit 42.6 36.0-46.0 % Mean Corpuscular Volume 88.5 80.0-100.0 fL Mean Corpuscular Hemoglobin 29.0 28.0-32.0 pg Mean Corpuscular Hemoglobin Concent 32.8 32.0-36.0 g/dL Red Cell Distribution Width 14.7 H 11.8-14.3 % Platelet Count 289 140-450 10^3/uL Mean Platelet Volume 8.9 6.9-10.8 fL Neutrophils (%) (Auto) 54.6 37.0-80.0 % Lymphocytes (%) (Auto) 34.1 10.0-50.0 % Monocytes (%) (Auto) 8.3 0.0-12.0 % Eosinophils (%) (Auto) 2.2 0.0-7.0 % Basophils (%) (Auto) 0.8 0.0-2.0 % Neutrophils # (Auto) 3.0 1.6-8.6 10 ^3/uL Lymphocytes # (Auto) 1.9 0.4-5.4 10 ^3/uL Monocytes # (Auto) 0.5 0-1.3 10 ^3/uL Eosinophils # (Auto) 0.1 0-0.8 10 ^3/uL Basophils # (Auto) 0 0-0.2 10 ^3/uL Nucleated Red Blood Cells 0.3 % Sodium Level 141 136-145 mmol/L Potassium Level 4.1 3.5-5.1 mmol/L Chloride Level 103 98-107 mmol/L Carbon Dioxide Level 28 20-31 mmol/L Anion Gap 10 5-15 Blood Urea Nitrogen 20 9-23 mg/dL Creatinine 1.56 #H 0.550-1.02 mg/dL Glomerular Filtration Rate Calc 36 >90 mL/min BUN/Creatinine Ratio 12.8 10.0-20.0 Serum Glucose 88 74-106 mg/dL Calcium Level 9.1 8.7-10.4 mg/dL B-Type Natriuretic Peptide 338.51 0-100 pg/mL Urine Color Yellow Yellow Urine Clarity Clear Clear Urine pH 6.5 5.0-9.0 Urine Specific [place] 1.009 1.001-1.035 Urine Protein Trace H Negative Urine Ketones Negative Negative Urine Blood Negative Negative /uL Urine Nitrite Negative Negative Urine Bilirubin Negative Negative Urine Urobilinogen 4 H Negative mg/dL Urine Leukocyte Esterase Negative Negative /uL Urine RBC None seen 0 - 4 /hpf Urine Microscopic WBC < 1 0-5 /HPF Urine Squamous Epithelial Cells Few <5 /hpf Urine Bacteria Few H None Seen /hpf Urine Glucose Normal Normal mg/dL Current Medications Medications (Trade) Dose Ordered Sig/Eusebio Route Start Time Stop Time Status Last Admin Furosemide (Lasix Injection) 40 mg ONCE ONCE IV 03/12/25 11:45 03/12/25 11:56 DC 03/12/25 12:11 Time of 1ST Reevaluation: 11:00 Reevaluation 1ST: Unchanged Time of 2ND Reevaluation: 12:30 Reevaluation 2ND: Improved Patient Education/Counseling: Diagnosis, Treatment Family Education/Counseling: No Family Present Comments The patient presents today due to persistence of shortess of breath On initial evaluation, the patient is on 2L O2 via NC saturating 92%, with shortness of breath on exertion, other vitals are stable Physical exam is positive for rales on auscultation EKG shows sinus rhythm with nonspecific T wave abnormalities and borderline prolong QTc at 486. Chest Xray shows increased interstital prominence. This may represent pulmonary vascular congestion and/or viral pneumonia. CBC is within normal range, BMP shows elevated creatinine, troponins are negative, BNP is 338 On reevaluation, patient's O2 flow was increased from 2L to 4L. She was started on Lasix 40 mg IV. Will be admitted for further work up and treatment. SEPSIS Sepsis Screen Date sepsis recognized/suspect: Mar 12, 2025 Time Sepsis recognized/suspect: 931 Recent Procedure: No On Antibiotic Therapy: No Respiratory Rate >20: No Heart Rate >90: No Temp<36 C (96.8 F) or >38.3 C: No SBP <90 or MAP <65 mmHG: No New Acute Mental Status Change: No Is the patient on CPAP, BIPAP,: No Physician Orders Electrocardigram (03/12/25 09:39) Chest Xray 1 View (03/12/25 10:16) Vital Signs Date Time Temp Pulse Resp B/P (MAP) Pulse Ox O2 Delivery O2 Flow Rate FiO2 03/12/25 13:04 55 24 95 Nasal Cannula* 4 36 03/12/25 13:01 98.4 55 16 187/72 (110) 95 98.4 03/12/25 12:11 155/63 03/12/25 11:45 55 16 96 Nasal Cannula 4.0 03/12/25 11:45 98.7 55 16 155/63 (93) 96 98.7 03/12/25 09:32 97.7 63 20 115/63 92 97.7 Laboratory Tests Test 03/12/25 11:17 White Blood Count 5.5 10^3/uL (4.4-10.8) Medications Medications Dose Ordered Sig/Eusebio Route Start Time Stop Time Status Last Admin Dose Admin Furosemide 40 mg ONCE ONCE IV 03/12/25 11:45 03/12/25 11:56 DC 03/12/25 12:11 Departure 1 Departure Time of Disposition: 13:00 Impression: Primary Impression: Acute hypoxic respiratory failure Disposition: 30 STILL A PATIENT Admit to: Tele Condition: Stable Critical Care Note Critical Care Time?: No Stability Stability form required: PAULA Gorman RESIDENT Mar 12, 2025 10:16
--- NOTE | 2025-03-12 10:53 | DVH ---
CHEST RADIOGRAPH Indication: SOB Technique: Single frontal view of the chest was obtained COMPARISON: XY CHEST TWO VIEWS ROUTINE on DOS: 03/08/25 FINDINGS: Lines and Tubes: None Lungs: Congestion Pleura: No effusion. No pneumothorax. Cardiomediastinal contours: Cardiomegaly Bones: Unremarkable IMPRESSION: Increased interstital prominence. This may represent pulmonary vascular congestion and/or viral pneumonia. Clinical correlation advised.
[2025-03-12 12:01] LABS: Hematocrit 42.6 % (36.0-46.0); Hemoglobin 14.0 g/dL (12.2-16.2); Mean Corpuscular Hemoglobin 29.0 pg (28.0-32.0); Mean Corpuscular Volume 88.5 fL (80.0-100.0); Nucleated Red Blood Cells % 0.3 %
[2025-03-12 12:03] LABS: Chloride 103 mmol/L (98-107); Potassium 4.1 mmol/L (3.5-5.1); Sodium 141 mmol/L (136-145)
[2025-03-12 12:04] LABS: Anion Gap 10 (5-15); Calcium 9.1 mg/dL (8.7-10.4); Carbon Dioxide 28 mmol/L (20-31)
[2025-03-12 12:09] LABS: BUN/Creatinine Ratio 12.8 (10.0-20.0); Blood Urea Nitrogen 20 mg/dL (9-23); Glucose 88 mg/dL (74-106)
[2025-03-12] MEDS: FUROSEMIDE 40 MG/4 ML VIAL IV ONE (12:11)
[2025-03-12 13:04] VITALS: PULSE 55; RESP 24; O2SAT 95
[2025-03-12] MEDS ORDERED: DULO1CAP6 PO (13:11)
[2025-03-12] MEDS ORDERED: LOSA-534 PO (13:11)
[2025-03-12] MEDS ORDERED: GABA-1250 PO (13:11)
[2025-03-12] MEDS ORDERED: FURO1TAB33 PO (13:11)
[2025-03-12] MEDS ORDERED: INSUINJ37 (13:11)
[2025-03-12] MEDS ORDERED: AMIO200T13 PO (13:11)
[2025-03-12] MEDS ORDERED: DOCUSATE SOD 100 MG CAP PO PRN (13:15)
[2025-03-12] MEDS ORDERED: NITROGLYCERIN 0.4 MG SL TAB SL PRN (13:15)
[2025-03-12] MEDS ORDERED: MORPHINE SULFATE INJ 2 MG/ml SYRG IV PRN (13:15)
[2025-03-12] MEDS ORDERED: ONDANSETRON HCL 4 MG/2 ML VIAL IV PRN (13:15)
[2025-03-12 13:22] LABS: COVID19 ANTIGEN SOFIA FIA NEGATIVE (NEGATIVE)
[2025-03-12] MEDS ORDERED: ALBUTEROL SULF 2.5 MG/0.5ML(0.5%) NEB SOLN NEB PRN (13:30)
[2025-03-12] MEDS ORDERED: IPRATROPIUM BROM 0.5 MG/2.5ML INH SOL NEB PRN (13:30)
[2025-03-12 13:39] VITALS: BP 155/63; PULSE 62; RESP 20; TEMP 98.7; O2SAT 95
--- NOTE | 2025-03-12 14:00 | DVHHP2 ---
History of Present Illness Reason for Visit: Shortness of breath History of Present Illness [place] is a 69-year-old female with past medical history of CHF, diabetes, neuropathy, and hyperlipemia, who came to the hospital for shortness of breath. Patient states she has been short of breath for the past couple of months, but it worsened last . She went in and saw her primary care provider who referred her to go to the hospital due to low oxygen saturation levels. She came to the hospital on but left AMA due to long wait for a bed. She came back to the hospital today because her shortness of breath is not improving. She in on 4L N/C on examination and states she usually does not require oxygen. Cardiovascular: CHF, HTN, hyperipidemia HISTORIC SITES REGISTRAR: Periperal neuropathy Endocrine: Diabetes Past Surgical History: Appendectomy, Hysterectomy, Other (right foot toe amputation x 2, ) Smoke: No ALCOHOL: none Drugs: None Lives: Alone Domestic Violence: Neg Review of Systems Constitutional: No: Fever, Chills, Sweats, Weakness, Malaise, Other Eyes: No: Pain, Vision change, Conjunctivae inflammation, Eyelid inflammation, Other, Redness ENT: No: Ear pain, Ear discharge, Nose pain, Nose discharge, Nose congestion, Mouth pain, Mouth swelling, Throat pain, Throat swelling, Other Respiratory: Cough, Shortness of breath, SOB with excertion, Wheezing; No: Dry, Hemoptysis, Pleuritic Pain, Sputum, Wheezing, Other Cardiovascular: No: Chest Pain, Palpitations, Orthopnea, Paroxysmal Noc. Dyspnea, Edema, Lt Headedness, Other Gastrointestinal: No: Nausea, Vomiting, Abdominal Pain, Diarrhea, Constipation, Melena, Hematochezia, Other Genitourinary: No Dysuria, No Frequency, No Incontinence, No Hematuria, No Retention, No Other Musculoskeletal: No: other, neck pain, shoulder pain, arm pain, back pain, hand pain, leg pain, foot pain Skin: No: Rash, Lesions, Jaundice, Bruising, Other Neurological: No: Weakness, Numbness, Incoordination, Change in speech, Confusion, Seizures, Other Allergies: Coded Allergies: NO KNOWN ALLERGIES (Unverified , 10/02/24) Medications Current Medications Medications Dose Ordered Sig/Eusebio Route Start Time Stop Time Status Last Admin Dose Admin Sodium Chloride 10 ml Q8HR IV 03/12/25 14:00 UNV Acetaminophen/ Hydrocodone Bitart 1 tab Q4HP PRN PO 03/12/25 13:15 UNV Ondansetron HCl 4 mg Q4HP PRN IV 03/12/25 13:15 UNV Docusate Sodium 100 mg BIDPRN PRN PO 03/12/25 13:15 UNV Enoxaparin Sodium 40 mg DAILY SC 03/13/25 10:00 UNV Acetaminophen 650 mg Q6HP PRN PO 03/12/25 13:15 UNV Nitroglycerin 0.4 mg Q5MINP PRN SL 03/12/25 13:15 UNV Morphine Sulfate 2 mg Q30M PRN IV 03/12/25 13:15 UNV Patient Own Medication 1 tab DAILY PO 03/13/25 10:00 UNV Gabapentin 300 mg BID PO 03/12/25 22:00 UNV Losartan Potassium 25 mg DAILY PO 03/13/25 10:00 UNV Patient Own Medication 1 cap DAILY PO 03/13/25 10:00 UNV Insulin Glargine 50 units QAM SC 03/13/25 07:00 UNV Insulin Glargine 45 units HS SC 03/12/25 22:00 UNV Exam Vital Signs Vital Signs Date Time Temp Pulse Resp B/P (MAP) Pulse Ox O2 Delivery O2 Flow Rate FiO2 03/12/25 13:04 55 24 95 Nasal Cannula* 4 36 03/12/25 12:11 155/63 03/12/25 11:45 98.7 98.7 General Appearance: Alert, Oriented X3 HEENT: Atraumatic, PERRLA, EOMI, Mucous membr. moist/pink Respiratory: Other (Diminished breath sounds) Cardiovascular: Regular rate, Normal S1, Normal S2 Abdominal: Normal bowel sounds, Soft, No tenderness, No hepatospenomegaly Extremities: No clubbing, No cyanosis, No edema, Normal pulses, No tenderness/swelling Skin: No rashes, No breakdown, No significant lesion Neuro: Normal gait, Normal speech, Strength at 5/5 X4 ext Psych/Mental Status: Mental status NL, Mood NL Labs/Xrays Labs Test 03/12/25 11:48 03/12/25 11:37 03/12/25 11:17 Range/Units Troponin I High Sensitivity 12 </=34 ng/L White Blood Count 5.5 4.4-10.8 10^3/uL Red Blood Count 4.81 4.0-5.20 10^6/uL Hemoglobin 14.0 12.2-16.2 g/dL Hematocrit 42.6 36.0-46.0 % Mean Corpuscular Volume 88.5 80.0-100.0 fL Mean Corpuscular Hemoglobin 29.0 28.0-32.0 pg Mean Corpuscular Hemoglobin Concent 32.8 32.0-36.0 g/dL Red Cell Distribution Width 14.7 H 11.8-14.3 % Platelet Count 289 140-450 10^3/uL Mean Platelet Volume 8.9 6.9-10.8 fL Neutrophils (%) (Auto) 54.6 37.0-80.0 % Lymphocytes (%) (Auto) 34.1 10.0-50.0 % Monocytes (%) (Auto) 8.3 0.0-12.0 % Eosinophils (%) (Auto) 2.2 0.0-7.0 % Basophils (%) (Auto) 0.8 0.0-2.0 % Neutrophils # (Auto) 3.0 1.6-8.6 10 ^3/uL Lymphocytes # (Auto) 1.9 0.4-5.4 10 ^3/uL Monocytes # (Auto) 0.5 0-1.3 10 ^3/uL Eosinophils # (Auto) 0.1 0-0.8 10 ^3/uL Basophils # (Auto) 0 0-0.2 10 ^3/uL Nucleated Red Blood Cells 0.3 % Sodium Level 141 136-145 mmol/L Potassium Level 4.1 3.5-5.1 mmol/L Chloride Level 103 98-107 mmol/L Carbon Dioxide Level 28 20-31 mmol/L Anion Gap 10 5-15 Blood Urea Nitrogen 20 9-23 mg/dL Creatinine 1.56 #H 0.550-1.02 mg/dL Glomerular Filtration Rate Calc 36 >90 mL/min BUN/Creatinine Ratio 12.8 10.0-20.0 Serum Glucose 88 74-106 mg/dL Calcium Level 9.1 8.7-10.4 mg/dL B-Type Natriuretic Peptide 338.51 0-100 pg/mL CHEST RADIOGRAPH FINDINGS: Lines and Tubes: None Lungs: Congestion Pleura: No effusion. No pneumothorax. Cardiomediastinal contours: Cardiomegaly Bones: Unremarkable IMPRESSION: Increased interstitial prominence. This may represent pulmonary vascular congestion and/or viral pneumonia. Clinical correlation advised. SEPSIS Sepsis Screen Date sepsis recognized/suspect: Mar 12, 2025 Time Sepsis recognized/suspect: 1300 Recent Procedure: No On Antibiotic Therapy: No Respiratory Rate >20: No Heart Rate >90: No Temp<36 C (96.8 F) or >38.3 C: No SBP <90 or MAP <65 mmHG: No New Acute Mental Status Change: No Is the patient on CPAP, BIPAP,: No Physician Orders Electrocardigram (03/12/25 09:39) Urinalysis (03/12/25 10:16) Chest Xray 1 View (03/12/25 10:16) Rapid Influenza A&B (03/12/25 11:32) Covid19 Antigen Traci (03/12/25 ) Admit (03/12/25 13:06) Code Status (03/12/25 13:06) Sodium Chloride Lock (Saline Lock Ns) (03/12/25 14:00) Hydrocodone-Acet 5/325mg Tab ([place] /32 (03/12/25 13:15) Ondansetron Hcl (Zofran) (03/12/25 13:15) Docusate Sodium Capsule (Colace Capsule) (03/12/25 13:15) Enoxaparin Sodium (Lovenox) (03/13/25 10:00) Complete Blood Count (03/13/25 04:00) Comprehensive Metabolic Panel (03/13/25 04:00) Cardiac Diet-2gna,Lofat,Lochol (03/12/25 Lunch) Echo 2d Mode Cardiac Dop (03/12/25 13:06) Condition: Serious (03/12/25 13:06) Acetaminophen Tablet (Tylenol Tablet) (03/12/25 13:15) Nitroglycerin Sublingual (Ntrostat Subli (03/12/25 13:15) Morphine Sulfate Injection (03/12/25 13:15) Stat Ekg For Chest Pain (03/12/25 13:06) Notify Md Of Changes From Base (03/12/25 13:06) Large Animal Veterinarian For 24 Hours (03/12/25 13:06) Emergency Dysrhythmia Protocol (03/12/25 13:06) Rhythm Strips Once Every Shift (03/12/25 13:06) Oxygen By Nasal Cannula (03/12/25 13:06) (Nf) Atorvastatin Calcium (03/13/25 10:00) Gabapentin Capsule (Neurontin Capsule) (03/12/25 22:00) Losartan Tablet (Cozaar Tablet) (03/13/25 10:00) (Nf) Duloxetine Hcl (Cymbalta) (03/13/25 10:00) Insulin Lantus (Glargine) (Lantus) (03/13/25 07:00) Insulin Lantus (Glargine) (Lantus) (03/12/25 22:00) Vital Signs Date Time Temp Pulse Resp B/P (MAP) Pulse Ox O2 Delivery O2 Flow Rate FiO2 03/12/25 13:04 55 24 95 Nasal Cannula* 4 36 03/12/25 12:11 155/63 03/12/25 11:45 55 16 96 Nasal Cannula 4.0 03/12/25 11:45 98.7 55 16 155/63 (93) 96 98.7 03/12/25 09:32 97.7 63 20 115/63 92 97.7 Laboratory Tests Test 03/12/25 11:17 White Blood Count 5.5 10^3/uL (4.4-10.8) Medications Medications Dose Ordered Sig/Eusebio Route Start Time Stop Time Status Last Admin Dose Admin Furosemide 40 mg ONCE ONCE IV 03/12/25 11:45 03/12/25 11:56 DC 03/12/25 12:11 40 MG Assessment/Plan Assessment/Plan Assessment: Acute on chronic diastolic heart failure, Acute respiratory failure with hypomimia, Hypertension, Diabetes, Peripheral neuropathy, Plan: Admit to Tele, Consider cardiology consult, Supplemental oxygen as needed, Breathing treatments as needed, IV Lasix, Home medications reconciled, Plan discussed with: Patient My Orders Orders - TAY LUNA [employer]ACH[employer]END[employer] Procedure Category Date Status Time Admit ADMIT 03/12/25 Transmitted 13:06 Code Status CODE 03/12/25 Transmitted 13:06 Sodium Chloride Lock PHA 03/12/25 Logged (Saline Lock Ns) 14:00 Hydrocodone-Acet PHA 03/12/25 Logged 5/325mg Tab ([place] 13:15 Ondansetron Hcl PHA 03/12/25 Logged (Zofran) 13:15 Docusate Sodium PHA 03/12/25 Logged Capsule (Colace 13:15 Enoxaparin Sodium PHA 03/13/25 Logged (Lovenox) 10:00 Complete Blood Count LAB 03/13/25 Verified 04:00 Comprehensive LAB 03/13/25 Verified Metabolic Panel 04:00 Cardiac DIET 03/12/25 Transmitted Diet-2gna,Lofat,Lochol Lunch Echo 2d Mode Cardiac US 03/12/25 Logged DOP 13:06 Condition: Serious [facility] 03/12/25 In Process 13:06 Acetaminophen Tablet PHA 03/12/25 Logged (Tylenol Tablet) 13:15 Nitroglycerin PHA 03/12/25 Logged Sublingual (Ntrostat 13:15 Morphine Sulfate PHA 03/12/25 Logged Injection 13:15 Stat Ekg For Chest [facility] 03/12/25 In Process Pain 13:06 Notify Md Of Changes [facility] 03/12/25 In Process From Base 13:06 Large Animal Veterinarian For [facility] 03/12/25 In Process 24 Hours 13:06 Emergency Dysrhythmia [facility] 03/12/25 In Process Protocol 13:06 Rhythm Strips Once [facility] 03/12/25 In Process Every Shift 13:06 Oxygen By Nasal RT 03/12/25 Transmitted Cannula 13:06 (Nf) Atorvastatin PHA 03/13/25 Logged Calcium 10:00 Gabapentin Capsule PHA 03/12/25 Logged (Neurontin Capsule) 22:00 Losartan Tablet PHA 03/13/25 Logged (Cozaar Tablet) 10:00 (Nf) Duloxetine Hcl PHA 03/13/25 Logged (Cymbalta) 10:00 Insulin Lantus PHA 03/13/25 Logged (Glargine) (Lantus) 07:00 Insulin Lantus PHA 03/12/25 Logged (Glargine) (Lantus) 22:00 Date of Service: Mar 12, 2025 Billing Provider: TAY LUNA Common Visit Codes: [id number] INP/OBS CARE (HIGH) TAY LUNA Mar 12, 2025 14:00
[2025-03-12 16:09] LABS: Urine Protein, UAD TRACE (Negative)
[2025-03-12] MEDS: SODIUM CHLOR 0.9% PF (SALINE LOCK) 10ML VIAL/SYR IV SCH (16:59)
[2025-03-12 18:17] VITALS: O2SAT 92
[2025-03-12] MEDS: FUROSEMIDE 40 MG/4 ML VIAL IV SCH (19:13)
[2025-03-12 21:00] VITALS: BP_SYST 149; BP_SYST 169; BP_DIAS 63; BP_DIAS 70; PULSE 63; PULSE 85; RESP 18; RESP 20; TEMP 97; TEMP 97.9; O2SAT 95; O2SAT 96
[2025-03-12] MEDS: ATORVASTATIN 20 MG TAB PO SCH (22:28)
[2025-03-12] MEDS: GABAPENTIN 300 MG CAP PO SCH (22:28)
[2025-03-12] MEDS: INSULIN LANTUS (GLARGINE) 1 /0.01ml (100units/ml) SC SCH (22:30)
[2025-03-12] MEDS ORDERED: PNEUMOCOCCAL VACC POLYS 25 MCG/0.5 ML VIAL IM SCH (23:15)
[2025-03-13] VITALS (10 sets, daily range): BP systolic 133–181; BP diastolic 56–96; PULSE 54–62; RESP 16–19; TEMP 97–98.3; O2SAT 93–99
[2025-03-13] MEDS: hydrALAZINE HCL 20 MG/ML VL IV ONE ×2 (05:02→22:35)
[2025-03-13 06:11] LABS: Hematocrit 38.0 % (36.0-46.0); Hemoglobin 12.8 g/dL (12.2-16.2); Mean Corpuscular Hemoglobin 29.5 pg (28.0-32.0); Mean Corpuscular Volume 87.6 fL (80.0-100.0); Nucleated Red Blood Cells % 0.2 %
[2025-03-13] MEDS: INSULIN LANTUS (GLARGINE) 1 /0.01ml (100units/ml) SC SCH (06:31)
[2025-03-13 06:35] LABS: Alanine Aminotransferase 14 U/L (7-40); Albumin 3.8 g/dL (3.2-4.8); Anion Gap 10 (5-15); BUN/Creatinine Ratio 13.1 (10.0-20.0); Blood Urea Nitrogen 18 mg/dL (9-23); Calcium 8.9 mg/dL (8.7-10.4); Chloride 100 mmol/L (98-107); Potassium 4.0 mmol/L (3.5-5.1); Sodium 142 mmol/L (136-145); Total Protein 7.7 g/dL (5.7-8.2)
[2025-03-13 06:36] LABS: Bilirubin, Total 0.8 mg/dL (0.2-1.0)
[2025-03-13 06:38] LABS: Alkaline Phosphatase 168 U/L (46-116); Carbon Dioxide 32 mmol/L (20-31); Glucose 168 mg/dL (74-106)
[2025-03-13] MEDS: LOSARTAN POTASSIUM 25 MG TAB PO SCH (09:41)
[2025-03-13] MEDS: ENOXAPARIN SOD 40 MG/0.4 ML SYRINGE SC SCH (09:44)
[2025-03-13] MEDS ORDERED: PNEUMOCOCCAL VACC POLYS 25 MCG/0.5 ML Syringe IM ONE (10:00)
[2025-03-13] MEDS ORDERED: PATIENTS OWN MEDICATION (Atorvastatin Calcium 1 TAB) PO SCH (10:00)
[2025-03-13] MEDS ORDERED: PATIENTS OWN MEDICATION (Duloxetine Hcl (Cymbalta) 1 CAP) PO SCH (10:00)
--- NOTE | 2025-03-13 11:58 | DVHSR ---
APPROVED REPORT EXAM: Two-dimensional and M-mode echocardiogram with Doppler, color Doppler and Bubble Study. Blood Pressure: 155/63 mmHg INDICATION acute on [facility] diastolic heart failure RISK FACTORS Obesity: Height: 66, Weight: 255 DIMENSIONS LVDd 4.1 (3.8-5.7cm) LA (2D) 4.0 (1.9-4.0cm) Aortic Root 2.7 (2.0-3.7cm) LVDs 2.6 (2.5-4.0cm) LA (MM) (1.9-4.0cm) Aortic Cusp Exc 1.3 (1.5-2.0cm) EF (%) 66.3 (55-70%) Rt. Atrium 5.6 (1.9-4.0cm) Asc. Aorta 3.0 cm IVSd 1.1 (0.7-1.1cm) RV (D) 5.3 (1.8-2.4cm) PWd 1.1 (0.7-1.1cm) Mitral Valve Mitral Mitral Stenosis E wave 1.34m/s MV Mean GR. 3mmHg A wave 1.07m/s MV Peak GR. 84mmHg E/A ratio 1.3 2D MVA cm2 DECEL Time 286ms PRESS 1/2 Time ms Aortic Valve Aortic Valve Aortic Stenosis V1 1.01m/s AO Mean GR. 6mmHg V2 1.54m/s AO Peak GR. 9mmHg LVOT Diameter 1.8 (1.8-2.4cm) Doppler SHOSHANA 1.67cm2 Pulmonic Valve V2 0.94m/s Tricuspid Valve TR Velocity 4.66m/s RVSP 94mmHg Other Information Quality : Technically Limited Rhythm : Technically limited study due to body habitus.patient position. pt breathing heavy, unable to hold breath. Conclusion lvef 60% normal lvef moderate lvh normal rv function no severe valve abnormalities noted mild pulmonic regurg moderate tricuspid regurg atrial septal aneuyrsm noted normal pericardium
--- NOTE | 2025-03-13 13:22 | DVHPN2 ---
Reviewed: H&P Changes from previous H/P or p: No Changes General: Per HPI Eyes: No Pain, No Vision change, No Conjunctivae inflammation, No Eyelid inflammation, No Other, No Redness ENT: No Ear pain, No Ear discharge, No Nose pain, No Nose discharge, No Nose congestion, No Mouth pain, No Mouth swelling, No Throat pain, No Throat swelling, No Other Cardiovascular: No Chest Pain, No Palpitations, No Orthopnea, No Paroxysmal Noc. Dyspnea, No Edema, No Lt Headedness, No Other Respiratory: Cough; No Dry; Shortness of breath, SOB with excertion, Wheezing; No Hemoptysis, No Pleuritic Pain, No Sputum, No Other Gastrointestinal: No Nausea, No Vomiting, No Abdominal Pain, No Diarrhea, No Constipation, No Melena, No Hematochezia, No Other Genitourinary: No Dysuria, No Frequency, No Incontinence, No Hematuria, No Retention, No Other Musculoskeletal: No other, No neck pain, No shoulder pain, No arm pain, No back pain, No hand pain, No leg pain, No foot pain Skin: No Rash, No Lesions, No Jaundice, No Bruising, No Other Objective Vitals Vital Signs Date Time Temp Pulse Resp B/P (MAP) Pulse Ox O2 Delivery O2 Flow Rate FiO2 03/13/25 10:00 98 Nasal Cannula 2.0 03/13/25 10:00 28 03/13/25 09:41 135/62 03/13/25 09:02 97.8 54 17 97.8 Intake/Output Intake and Output 03/13/25 07:00 Intake Total 300 ml Balance 300 ml Intake Tube Feeding 300 ml Exam General Appearance: Alert, Oriented X3 HEENT: Atraumatic, PERRLA, EOMI, Mucous membr. moist/pink Respiratory: Other (Diminished breath sounds) Cardiovascular: Regular rate, Normal S1, Normal S2 Abdominal: Normal bowel sounds, Soft, No tenderness, No hepatospenomegaly Extremities: No clubbing, No cyanosis, No edema, Normal pulses, No tenderness/swelling Skin: No rashes, No breakdown, No significant lesion Neuro: Normal gait, Normal speech, Strength at 5/5 X4 ext Psych/Mental Status: Mental status NL, Mood NL Medications Current Medications Medications Dose Ordered Sig/Eusebio Route Start Time Stop Time Status Last Admin Dose Admin Sodium Chloride 10 ml Q8HR IV 03/12/25 14:00 03/13/25 06:25 10 ML Acetaminophen/ Hydrocodone Bitart 1 tab Q4HP PRN PO 03/12/25 13:15 Ondansetron HCl 4 mg Q4HP PRN IV 03/12/25 13:15 Docusate Sodium 100 mg BIDPRN PRN PO 03/12/25 13:15 Enoxaparin Sodium 40 mg DAILY SC 03/13/25 10:00 03/13/25 09:44 40 MG Acetaminophen 650 mg Q6HP PRN PO 03/12/25 13:15 Nitroglycerin 0.4 mg Q5MINP PRN SL 03/12/25 13:15 Morphine Sulfate 2 mg Q30M PRN IV 03/12/25 13:15 Patient Own Medication 1 tab DAILY PO 03/13/25 10:00 UNV Gabapentin 300 mg BID PO 03/12/25 22:00 03/13/25 09:41 300 MG Losartan Potassium 25 mg DAILY PO 03/13/25 10:00 03/13/25 09:41 25 MG Patient Own Medication 1 cap DAILY PO 03/13/25 10:00 UNV Insulin Glargine 50 units QAM SC 03/13/25 07:00 03/13/25 06:31 50 UNITS Insulin Glargine 45 units HS SC 03/12/25 22:00 03/12/25 22:30 45 UNITS Furosemide 40 mg BIDD IV 03/12/25 18:00 03/13/25 06:27 40 MG Albuterol 2.5 mg Q6HPRN PRN NEB 03/12/25 13:30 Ipratropium Topaz 0.5 mg Q6HPRN PRN NEB 03/12/25 13:30 Atorvastatin Calcium 10 mg HS PO 03/12/25 22:00 03/12/25 22:28 10 MG Duloxetine HCl 60 mg DAILY PO 03/13/25 10:00 03/13/25 09:41 60 MG Laboratory Results Laboratory Tests 03/13/25 05:34 Chemistry Test 03/13/25 05:34 Albumin 3.8 g/dL (3.2-4.8) Calcium Level 8.9 mg/dL (8.7-10.4) Total Protein 7.7 g/dL (5.7-8.2) LFT Test 03/13/25 05:34 Alanine Aminotransferase (ALT) 14 U/L (7-40) Alkaline Phosphatase 168 U/L (46-116) H Aspartate Amino Transferase (AST) 24 U/L (13-40) Total Bilirubin 0.8 mg/dL (0.2-1.0) Urinalysis Test 03/12/25 11:00 Urine Color Yellow (Yellow) Urine Clarity Clear (Clear) Urine pH 6.5 (5.0-9.0) Urine Specific Phenix 1.009 (1.001-1.035) Urine Protein Trace (Negative) H Urine Ketones Negative (Negative) Urine Blood Negative /uL (Negative) Urine Nitrite Negative (Negative) Urine Bilirubin Negative (Negative) Urine Urobilinogen 4 mg/dL (Negative) H Urine Leukocyte Esterase Negative /uL (Negative) Urine RBC None seen /hpf (0 - 4) Urine Microscopic WBC < 1 /HPF (0-5) Urine Squamous Epithelial Cells Few /hpf (<5) Urine Bacteria Few /hpf (None Seen) H Urine Glucose Normal mg/dL (Normal) Labs and/or images reviewed: Labs reviewed by me, Image(s) reviewed by me Assessment/Plan Assessment/Plan 69-year-old female with past medical history of CHF, diabetes, neuropathy, and hyperlipemia, who came to the hospital for shortness of breath. Patient states she has been short of breath for the past couple of months, but it worsened last . She went in and saw her primary care provider who referred her to go to the hospital due to low oxygen saturation levels. She came to the hospital on but left AMA due to long wait for a bed. She came back to the hospital today because her shortness of breath is not improving. She in on 4L N/C on examination and states she usually does not require oxygen. 03/13: Patient is here with shortness of Breath, has history of CHF. Patient here with volume overload status. Troponin negative, BNP mildly elevated 300. Chest x-ray with a pulmonary vascular congestion. Your some faint rales on exam, no pitting edema. Significant abdominal distention has been worsening, we will get CT abdomen pelvis non-con Assessment: Acute on chronic diastolic heart failure, Acute respiratory failure with hypomimia, Hypertension, Diabetes, Peripheral neuropathy, Plan: Admit to Tele, Consider cardiology consult, Supplemental oxygen as needed, Breathing treatments as needed, IV Lasix, Home medications reconciled, Tele Full code Plan discussed with: Patient Date of Service: Mar 13, 2025 Billing Provider: ANIL PEACE MD Common Visit Codes: [id number] INP/OBS CARE(HIGH) ANIL PEACE MD Mar 13, 2025 13:22
--- NOTE | 2025-03-13 16:06 | DVH ---
COMPUTERIZED TOMOGRAPHY ABDOMEN AND PELVIS WITHOUT CONTRAST REASON FOR EXAM: abd distension. Evaluate hepatomegaly vs ascites COMPARISON: None TECHNIQUE: Spiral scans were acquired from the diaphragm to the symphysis pubis without intravenous contrast administration. 2-D coronal and sagittal reformatted images were provided. Radiation optimization: All CT scans at this facility use at least one of these dose optimization techniques: Automated exposure control mA and/or kV adjustment per patient size (includes targeted exams where dose is matched to clinical indication) or iterative reconstruction. RADIATION DOSE: CTDI: 24.64 mGy DLP: 1281.74 mGy-cm FINDINGS: There is heterogeneous attenuation of the lung bases likely due to underinflation at the time of the scan. There is no pleural effusion. There is no pericardial effusion. The spleen is not enlarged. The liver is within normal limits for size. The liver surface appears nodular, suggestive of cirrhosis. The gallbladder is surgically absent. Evaluation of the abdominal organs is suboptimal in the absence of intravenous contrast. Unenhanced appearance of the pancreas is u nremarkable. The adrenal glands appear normal. The kidneys are similar in size. There is no hydronephrosis of either kidney. Is a 2 mm nonobstructive calculus at the inferior pole of the right kidney. There is no abdominal aortic aneurysm. There is extensive atherosclerosis. There is a fat containing left inguinal hernia. The urinary bladder is not distended but appears grossly within normal limits. The right ovary is within normal limits. The left ovary is not seen. No free fluid is identified in the abdomen or pelvis. The colonic stool burden is moderate. There is a large amount of intra-abdominal visceral fat. The appendix is normal. There is no distention of the small bowel. No acute osseous abnormality is identified. IMPRESSION: Nodular appearance of the liver surface suggestive of cirrhosis. No ascites identified. Abdominal distention appears primarily secondary to intra-abdominal, visceral fat. Moderate colonic stool burden. Correlate clinically for constipation.
[2025-03-13] MEDS ORDERED: DEXTROSE (50%) 50ML SYRG IV PRN ×2 (22:15→23:45)
[2025-03-13] MEDS: ACCU-CHEK COMFORT CURVE STRIP VI SCH (23:00)
[2025-03-13] MEDS: InsuLIN REG 1unit/0.01ml Soln (100units/ml) SC SCH (23:06)
[2025-03-14] VITALS (8 sets, daily range): BP systolic 139–160; BP diastolic 64–75; PULSE 54–69; RESP 16–18; TEMP 97.2–98.2; O2SAT 94–97
[2025-03-14] MEDS: InsuLIN REG 1unit/0.01ml Soln (100units/ml) SC SCH
[2025-03-14] MEDS: ACCU-CHEK COMFORT CURVE STRIP VI SCH
[2025-03-14] MEDS: HYDROcodone-ACET 5/325MG TAB PO PRN (04:17)
[2025-03-14 05:34] LABS: Hematocrit 42.1 % (36.0-46.0); Hemoglobin 13.9 g/dL (12.2-16.2); Mean Corpuscular Hemoglobin 28.9 pg (28.0-32.0); Mean Corpuscular Volume 87.8 fL (80.0-100.0); Nucleated Red Blood Cells % 0.2 %
[2025-03-14 05:51] LABS: Alanine Aminotransferase 13 U/L (7-40); Albumin 3.9 g/dL (3.2-4.8); Anion Gap 9 (5-15); BUN/Creatinine Ratio 14.8 (10.0-20.0); Calcium 9.2 mg/dL (8.7-10.4); Potassium 4.2 mmol/L (3.5-5.1); Sodium 137 mmol/L (136-145); Total Protein 8.0 g/dL (5.7-8.2)
[2025-03-14 05:52] LABS: Bilirubin, Total 1.0 mg/dL (0.2-1.0)
[2025-03-14 05:54] LABS: Alkaline Phosphatase 188 U/L (46-116); Blood Urea Nitrogen 23 mg/dL (9-23); Carbon Dioxide 34 mmol/L (20-31); Chloride 94 mmol/L (98-107); Glucose 257 mg/dL (74-106)
[2025-03-14] MEDS: FUROSEMIDE 40 MG/4 ML VIAL IV SCH (06:27)
[2025-03-14] MEDS: ACETAMINOPHEN 325 MG TAB PO PRN (07:53)
--- NOTE | 2025-03-14 10:18 | DVHPN2 ---
Reviewed: H&P Changes from previous H/P or p: No Changes General: Per HPI Eyes: No Pain, No Vision change, No Conjunctivae inflammation, No Eyelid inflammation, No Other, No Redness ENT: No Ear pain, No Ear discharge, No Nose pain, No Nose discharge, No Nose congestion, No Mouth pain, No Mouth swelling, No Throat pain, No Throat swelling, No Other Cardiovascular: No Chest Pain, No Palpitations, No Orthopnea, No Paroxysmal Noc. Dyspnea, No Edema, No Lt Headedness, No Other Respiratory: Cough; No Dry; Shortness of breath, SOB with excertion, Wheezing; No Hemoptysis, No Pleuritic Pain, No Sputum, No Other Gastrointestinal: No Nausea, No Vomiting, No Abdominal Pain, No Diarrhea, No Constipation, No Melena, No Hematochezia, No Other Genitourinary: No Dysuria, No Frequency, No Incontinence, No Hematuria, No Retention, No Other Musculoskeletal: No other, No neck pain, No shoulder pain, No arm pain, No back pain, No hand pain, No leg pain, No foot pain Skin: No Rash, No Lesions, No Jaundice, No Bruising, No Other Objective Vitals Vital Signs Date Time Temp Pulse Resp B/P (MAP) Pulse Ox O2 Delivery O2 Flow Rate FiO2 03/14/25 09:16 139/75 03/14/25 08:48 97.7 59 16 94 97.7 03/14/25 08:28 Nasal Cannula 2.0 03/14/25 08:28 28 Intake/Output Intake and Output 03/14/25 07:00 Intake Total 1200 ml Output Total 0 ml Balance 1200 ml Intake Oral 1200 ml Output Stool Total 0 ml # Voids 13 # Bowel Movements 2 Exam General Appearance: Alert, Oriented X3 HEENT: Atraumatic, PERRLA, EOMI, Mucous membr. moist/pink Respiratory: Other (Diminished breath sounds) Cardiovascular: Regular rate, Normal S1, Normal S2 Abdominal: Normal bowel sounds, Soft, No tenderness, No hepatospenomegaly Extremities: No clubbing, No cyanosis, No edema, Normal pulses, No tenderness/swelling Skin: No rashes, No breakdown, No significant lesion Neuro: Normal gait, Normal speech, Strength at 5/5 X4 ext Psych/Mental Status: Mental status NL, Mood NL Medications Current Medications Medications Dose Ordered Sig/Eusebio Route Start Time Stop Time Status Last Admin Dose Admin Sodium Chloride 10 ml Q8HR IV 03/12/25 14:00 03/14/25 06:25 10 ML Acetaminophen/ Hydrocodone Bitart 1 tab Q4HP PRN PO 03/12/25 13:15 03/14/25 04:17 1 TAB Ondansetron HCl 4 mg Q4HP PRN IV 03/12/25 13:15 Docusate Sodium 100 mg BIDPRN PRN PO 03/12/25 13:15 Enoxaparin Sodium 40 mg DAILY SC 03/13/25 10:00 03/14/25 09:15 40 MG Acetaminophen 650 mg Q6HP PRN PO 03/12/25 13:15 03/14/25 07:53 650 MG Nitroglycerin 0.4 mg Q5MINP PRN SL 03/12/25 13:15 Morphine Sulfate 2 mg Q30M PRN IV 03/12/25 13:15 Patient Own Medication 1 tab DAILY PO 03/13/25 10:00 UNV Gabapentin 300 mg BID PO 03/12/25 22:00 03/14/25 09:15 300 MG Losartan Potassium 25 mg DAILY PO 03/13/25 10:00 03/14/25 09:16 25 MG Patient Own Medication 1 cap DAILY PO 03/13/25 10:00 UNV Insulin Glargine 50 units QAM SC 03/13/25 07:00 03/14/25 06:23 50 UNITS Insulin Glargine 45 units HS SC 03/12/25 22:00 03/13/25 21:40 45 UNITS Albuterol 2.5 mg Q6HPRN PRN NEB 03/12/25 13:30 Ipratropium [place] 0.5 mg Q6HPRN PRN NEB 03/12/25 13:30 Atorvastatin Calcium 10 mg HS PO 03/12/25 22:00 03/13/25 21:30 10 MG Duloxetine HCl 60 mg DAILY PO 03/13/25 10:00 03/14/25 09:15 60 MG Diagnostic Test (Pha) 1 strip IQ4HR 03/14/25 00:00 03/14/25 07:59 1 STRIP Insulin Human Regular IQ4HR SC 03/14/25 00:00 03/14/25 07:58 4 UNITS Dextrose 50 ml UD PRN IV 03/13/25 23:45 Furosemide 20 mg BIDD IV 03/14/25 06:00 03/14/25 06:27 20 MG Laboratory Results Laboratory Tests 03/14/25 04:46 Chemistry Test 03/14/25 04:46 Albumin 3.9 g/dL (3.2-4.8) Calcium Level 9.2 mg/dL (8.7-10.4) Total Protein 8.0 g/dL (5.7-8.2) LFT Test 03/14/25 04:46 Alanine Aminotransferase (ALT) 13 U/L (7-40) Alkaline Phosphatase 188 U/L (46-116) H Aspartate Amino Transferase (AST) 21 U/L (13-40) Total Bilirubin 1.0 mg/dL (0.2-1.0) Urinalysis Test 03/12/25 11:00 Urine Color Yellow (Yellow) Urine Clarity Clear (Clear) Urine pH 6.5 (5.0-9.0) Urine Specific [place] 1.009 (1.001-1.035) Urine Protein Trace (Negative) H Urine Ketones Negative (Negative) Urine Blood Negative /uL (Negative) Urine Nitrite Negative (Negative) Urine Bilirubin Negative (Negative) Urine Urobilinogen 4 mg/dL (Negative) H Urine Leukocyte Esterase Negative /uL (Negative) Urine RBC None seen /hpf (0 - 4) Urine Microscopic WBC < 1 /HPF (0-5) Urine Squamous Epithelial Cells Few /hpf (<5) Urine Bacteria Few /hpf (None Seen) H Urine Glucose Normal mg/dL (Normal) Labs and/or images reviewed: Labs reviewed by me, Image(s) reviewed by me Assessment/Plan Assessment/Plan 69-year-old female with past medical history of CHF, diabetes, neuropathy, and hyperlipemia, who came to the hospital for shortness of breath. Patient states she has been short of breath for the past couple of months, but it worsened last . She went in and saw her primary care provider who referred her to go to the hospital due to low oxygen saturation levels. She came to the hospital on but left AMA due to long wait for a bed. She came back to the hospital today because her shortness of breath is not improving. She in on 4L N/C on examination and states she usually does not require oxygen. 03/13: Patient is here with shortness of Breath, has history of CHF. Patient here with volume overload status. Troponin negative, BNP mildly elevated 300. Chest x-ray with a pulmonary vascular congestion. Your some faint rales on exam, no pitting edema. Significant abdominal distention has been worsening, we will get CT abdomen pelvis non-con 03/14: Patient has history of positive hep a antibody and hep B antibody, no hep C. patient needs to GI referral for cirrhosis. She also has history of RPR positive with trip antibody positive. Unknown if this was treated or not. Cirrhosis is likely ESCOBAR, this is low likelihood but still possible of chronic hep B infection (hep B surface antigen is negative in October ). 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 Continue follow up with PCP. We will give Lasix as prn for shortness of breath. Needs to be tested for sleep apnea. Continue other home medications not mentioned above. Needs to discuss weight loss options with PCP. One week follow up PCP. One week follow up DC clinic. - patient on oxygen we will test for oxygen requirement with ABG on room air. If patient continues to need oxygen we will be discharged home with oxygen. 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 History of resolved HBV infection, History of resolved HAV infection Hypertension, Diabetes mellitus, type 2, Peripheral neuropathy, Obesity, BMI 36.7 Plan: Admit to Tele, Consider cardiology consult, Supplemental oxygen as needed, Breathing treatments as needed, IV Lasix, Home medications reconciled, Tele Full code Plan discussed with: Patient My Orders Orders - ANIL PEACE MD Procedure Category Date Status Time Ct Ab Pel Wo Con-No CT 03/13/25 Resulted Oral Or Iv 14:27 Cardiac DIET 03/14/25 Transmitted Diet-2gna,Lofat,Lochol Breakfast Glucose Blood PHA 03/14/25 In Process (Accu-Chek Comfort 00:00 Insulin R (Human) PHA 03/14/25 In Process (Insulin R) 00:00 Dextrose 50% Syringe PHA 03/13/25 In Process 23:45 Furosemide Injection PHA 03/14/25 In Process (Lasix Injection) 06:00 Date of Service: Mar 14, 2025 Billing Provider: ANIL PEACE MD Common Visit Codes: [id number] INP/OBS CARE(HIGH) ANIL PEACE MD Mar 14, 2025 10:18
[2025-03-14] MEDS ORDERED: FURO20TA3 PO (13:57)
--- NOTE | 2025-03-14 13:59 | DVHDS2 ---
Discharge Summary Date of Admission Mar 12, 2025 at 13:06 Date of Discharge: Mar 14, 2025 Labs/Diagnostic Data: Laboratory Results Test 03/14/25 11:17 03/14/25 04:46 03/12/25 11:48 03/12/25 11:37 POC Glucose 197 mg/dl (70-106) White Blood Count 4.7 10^3/uL (4.4-10.8) Red Blood Count 4.79 10^6/uL (4.0-5.20) Hemoglobin 13.9 g/dL (12.2-16.2) Hematocrit 42.1 % (36.0-46.0) Mean Corpuscular Volume 87.8 fL (80.0-100.0) Mean Corpuscular Hemoglobin 28.9 pg (28.0-32.0) Mean Corpuscular Hemoglobin Concent 32.9 g/dL (32.0-36.0) Red Cell Distribution Width 14.6 % (11.8-14.3) Platelet Count 244 10^3/uL (140-450) Mean Platelet Volume 8.7 fL (6.9-10.8) Neutrophils (%) (Auto) 53.5 % (37.0-80.0) Lymphocytes (%) (Auto) 30.5 % (10.0-50.0) Monocytes (%) (Auto) 13.5 % (0.0-12.0) Eosinophils (%) (Auto) 2.1 % (0.0-7.0) Basophils (%) (Auto) 0.4 % (0.0-2.0) Neutrophils # (Auto) 2.5 10 ^3/uL (1.6-8.6) Lymphocytes # (Auto) 1.4 10 ^3/uL (0.4-5.4) Monocytes # (Auto) 0.6 10 ^3/uL (0-1.3) Eosinophils # (Auto) 0.1 10 ^3/uL (0-0.8) Basophils # (Auto) 0 10 ^3/uL (0-0.2) Nucleated Red Blood Cells 0.2 % Sodium Level 137 mmol/L (136-145) Potassium Level 4.2 mmol/L (3.5-5.1) Chloride Level 94 mmol/L (98-107) Carbon Dioxide Level 34 mmol/L (20-31) Anion Gap 9 (5-15) Blood Urea Nitrogen 23 mg/dL (9-23) Creatinine 1.55 mg/dL (0.550-1.02) Glomerular Filtration Rate Calc 36 mL/min (>90) BUN/Creatinine Ratio 14.8 (10.0-20.0) Serum Glucose 257 mg/dL (74-106) Calcium Level 9.2 mg/dL (8.7-10.4) Total Bilirubin 1.0 mg/dL (0.2-1.0) Aspartate Amino Transferase (AST) 21 U/L (13-40) Alanine Aminotransferase (ALT) 13 U/L (7-40) Alkaline Phosphatase 188 U/L (46-116) Total Protein 8.0 g/dL (5.7-8.2) Albumin 3.9 g/dL (3.2-4.8) Troponin I High Sensitivity 12 ng/L (</=34) Influenza Type A Antigen Negative (Negative) Influenza Type B Antigen Negative (Negative) SARS-CoV-2 Antigen (Rapid) Negative (NEGATIVE) Test 03/12/25 11:17 03/12/25 11:00 B-Type Natriuretic Peptide 338.51 pg/mL (0-100) Urine Color Yellow (Yellow) Urine Clarity Clear (Clear) Urine pH 6.5 (5.0-9.0) Urine Specific [place] 1.009 (1.001-1.035) Urine Protein Trace (Negative) Urine Ketones Negative (Negative) Urine Blood Negative /uL (Negative) Urine Nitrite Negative (Negative) Urine Bilirubin Negative (Negative) Urine Urobilinogen 4 mg/dL (Negative) Urine Leukocyte Esterase Negative /uL (Negative) Urine RBC None seen /hpf (0 - 4) Urine Microscopic WBC < 1 /HPF (0-5) Urine Squamous Epithelial Cells Few /hpf (<5) Urine Bacteria Few /hpf (None Seen) Urine Glucose Normal mg/dL (Normal) Other Laboratory Tests 03/14/25 04:46 Brief Hx & Hospital Course: 69-year-old female with past medical history of CHF, diabetes, neuropathy, and hyperlipemia, who came to the hospital for shortness of breath. Patient states she has been short of breath for the past couple of months, but it worsened last . She went in and saw her primary care provider who referred her to go to the hospital due to low oxygen saturation levels. She came to the hospital on but left AMA due to long wait for a bed. She came back to the hospital today because her shortness of breath is not improving. She in on 4L N/C on examination and states she usually does not require oxygen. 03/13: Patient is here with shortness of Breath, has history of CHF. Patient here with volume overload status. Troponin negative, BNP mildly elevated 300. Chest x-ray with a pulmonary vascular congestion. Your some faint rales on exam, no pitting edema. Significant abdominal distention has been worsening, we will get CT abdomen pelvis non-con 03/14: Patient has history of positive hep a antibody and hep B antibody, no hep C. patient needs to GI referral for cirrhosis. She also has history of RPR positive with trip antibody positive. Unknown if this was treated or not. Cirrhosis is likely ESCOBAR, this is low likelihood but still possible of chronic hep B infection (hep B surface antigen is negative in October ). 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 Continue follow up with PCP. We will give Lasix as prn for shortness of breath. Needs to be tested for sleep apnea. Continue other home medications not mentioned above. Needs to discuss weight loss options with PCP. One week follow up PCP. One week follow up DC clinic. - patient on oxygen we will test for oxygen requirement with ABG on room air. If patient continues to need oxygen we will be discharged home with oxygen. 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 - Continue follow up with PCP. - Lasix as prn for shortness of breath. - Needs to be tested for sleep apnea. attn PCP. - Continue other home medications not mentioned above. - Needs to discuss weight loss options with PCP. - One week follow up PCP. - One week follow up DC clinic. 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 History of resolved HBV infection, History of resolved HAV infection Mild pulmonic regurg Moderate tricuspid regurg Atrial septal aneurysm Hypertension, Diabetes mellitus, type 2, Peripheral neuropathy, Obesity, BMI 36.7 Discharge Disposition: Home Discharge Instruct/Medications Scheduled Amiodarone HCl (Amiodarone HCl), 1 TAB PO DAILY, (Reported) Atorvastatin Calcium (Atorvastatin Calcium), 1 TAB PO DAILY Bisoprolol Fumarate (Bisoprolol Fumarate), 1 TAB PO DAILY Duloxetine Hcl (Cymbalta), 1 CAP PO DAILY Furosemide (Lasix), 40 MG PO DAILY, (Reported) Gabapentin (Gabapentin), 1 CAP PO BID, (Reported) Losartan Potassium (Cozaar), 1 TAB PO DAILY Miscellaneous Medications Insulin Glargine (Lantus Solostar), (Reported) Discontinued Medications Losartan Potassium (Losartan Potassium), 1 TAB PO DAILY, (Reported) Discharge Statement: "Patient was advised to return to the ER or call 911 if any headaches, dizziness, shortness of breath, chest pain, abdominal pain, bleeding, fevers, or worsening of medical condition. Patient was counseled about treatment plan, medications, possible side effects, patientverbalized understanding. All questions were answered to the best of my ability. This discharge took greater then 30 minutes in planning, reviewing documentation, counseling the patient, and discussing with other team members." ASSESSMENT ASSESSMENT Assessment Date of Service: Mar 14, 2025 Billing Provider: ANIL PEACE MD Common Visit Codes: 94883-JSR/OBS DISCH DAY >30min ANIL PEACE MD Mar 14, 2025 13:59
[2025-03-14] MEDS: PNEUMOCOCCAL VACC POLYS 25 MCG/0.5 ML Syringe IM ONE (15:29)
== END 2025-03-14 14:04 | disposition home or self-care (01) | DRG 291 ==
LOC: ER 09:30 → OVERFLOW 13:06 → TELE-CENTR 21:36
PROVIDERS: ADMIT Student in an Organized Health Care Education/Training Program; ATTEND Student in an Organized Health Care Education/Training Program
DX: I11.0 Hypertensive heart disease with heart failure (principal); I50.33 Acute on chronic diastolic (congestive) heart failure; J96.01 Acute respiratory failure with hypoxia; I25.3 Aneurysm of heart; K74.60 Unspecified cirrhosis of liver; Z68.36 Body mass index [BMI] 36.0-36.9, adult; E11.42 Type 2 diabetes mellitus with diabetic polyneuropathy; I07.1 Rheumatic tricuspid insufficiency; Z20.822 Contact with and (suspected) exposure to COVID-19; E66.9 Obesity, unspecified; K75.81 Nonalcoholic steatohepatitis (NASH); I42.2 Other hypertrophic cardiomyopathy; I37.1 Nonrheumatic pulmonary valve insufficiency; E78.5 Hyperlipidemia, unspecified; Z90.710 Acquired absence of both cervix and uterus; Z90.49 Acquired absence of other specified parts of digestive tract; Z87.891 Personal history of nicotine dependence; Z79.899 Other long term (current) drug therapy; Z89.421 Acquired absence of other right toe(s)
CPT/HCPCS: 36415; 71045; 74176; 80048; 80053; 81001; 82962; 83880; 84484; 85025; 87426; 87804; 93005; 93306; 96374; G0378; J1815